=== PATIENT | male | born 1985 | race Caucasian/White ===

== ENCOUNTER 2020-04-12 03:32 | Emergency (ER) | payer BC ==
[2020-04-12 03:39] VITALS: TEMP 97.9
[2020-04-12] MEDS ORDERED: SODIUM CHLORIDE 0.9% 1,000 ML IV STA ×2 (03:52)
[2020-04-12] MEDS ORDERED: HYDROmorphone 1 MG/ML 1 ML SYRINGE IVP STA (03:53)
[2020-04-12] MEDS ORDERED: ONDANSETRON 4 MG/2 ML VIAL IVP STA (03:53)
--- NOTE | 2020-04-12 04:13 | ED ---
Abdominal Pain HPI - General Chief Complaint: Abdominal Pain Stated Complaint: abd pain Time Seen by Provider: 04/12/20 03:33 Source: patient, RN notes reviewed, old records reviewed Mode of arrival: ambulatory Limitations: no limitations - History of Present Illness Initial Comments: This is a 35-year-old male with sudden onset of severe abdominal pain epigastric right or quadrant abdominal pain positive nausea no vomiting. No significant recent alcohol intake. No recent travel history or sick contacts. No trauma. Patient has had a history of high blood pressure in the past. MD Complaint: abdominal pain -: hour(s) Location: diffuse, RUQ, suprapubic Radiation: suprapubic, R flank Migration to: RUQ, epigastric Severity: severe Severity scale (1-10): 10 Quality: stabbing, aching Consistency: constant Improves With: nothing Worsens With: nothing Associated Symptoms: nausea, other (diaphoreses) - Related Data Previous Rx's Medication Instructions Recorded Lisinopril-Hctz 10-12.5 mg 1 tab PO DAILY #60 tab 04/10/15 [Zestoretic 10-12.5] Ibuprofen [Motrin] 600 mg PO Q6HR PRN #20 tab 09/12/15 Orphenadrine [Norflex] 100 mg PO Q12H PRN #12 tablet.er 09/12/15 Allergies Allergy/AdvReac Type Severity Reaction Status Date / Time No Known Allergies Allergy Verified 04/12/20 03:39 Review of Systems ROS Statement: Those systems with pertinent positive or pertinent negative responses have been documented in the HPI. ROS Other: All systems not noted in ROS Statement are negative. Past Medical History Past Medical History: Hypertension History of Any Multi-Drug Resistant Organisms: None Reported Past Surgical History: No Surgical Hx Reported Past Psychological History: No Psychological Hx Reported Smoking Status: Never smoker Past Alcohol Use History: Occasional Past Drug Use History: None Reported General Exam Limitations: no limitations General appearance: alert, in no apparent distress, anxious, in distress, obese Head exam: Present: atraumatic, normocephalic, normal inspection Eye exam: Present: normal appearance, PERRL, EOMI. Absent: scleral icterus, conjunctival injection, periorbital swelling ENT exam: Present: normal exam, mucous membranes moist Neck exam: Present: normal inspection. Absent: tenderness, meningismus, lymphadenopathy Respiratory exam: Present: normal lung sounds bilaterally. Absent: respiratory distress, wheezes, rales, rhonchi, stridor Cardiovascular Exam: Present: regular rate, normal rhythm, normal heart sounds. Absent: systolic murmur, diastolic murmur, rubs, gallop, clicks GI/Abdominal exam: Present: distended, tenderness, normal bowel sounds. Absent: guarding, rebound, rigid Extremities exam: Present: normal inspection, full ROM, normal capillary refill. Absent: tenderness, pedal edema, joint swelling, calf tenderness Back exam: Present: normal inspection Neurological exam: Present: alert, oriented X3, CN II-XII intact Psychiatric exam: Present: normal affect, normal mood Skin exam: Present: warm, dry, intact, normal color. Absent: rash Course Vital Signs 04/12/20 04/12/20 03:38 04:34 Temperature 97.9 F Pulse Rate 75 73 Respiratory 18 19 Rate Blood Pressure 204/96 162/100 O2 Sat by Pulse 99 99 Oximetry - Reevaluation(s) Reevaluation #1: 04/12/20 04:12 Medical record is reviewed Reevaluation #2: 04/12/20 04:12 Patient severe epigastric right upper quadrant abdominal pain persistent, although improved Reevaluation #3: 04/12/20 05:21 Patient's pain is improved here in the emergency department vital signs improving - Consultations Consultation #1: Spoke with on-call general surgery okay for discharge Medical Decision Making - Medical Decision Making 35 male DF for evaluation of abdominal pain, upper quadrant right upper quadrant abdominal pain which does appear to be related to hepatic hemangioma. Patient is in no significant current distress. - Lab Data Result diagrams: 04/12/20 04:00 04/12/20 04:03 Lab Results 04/12/20 04/12/20 04/12/20 Range/Units 04:00 04:03 04:03 WBC 8.5 (3.8-10.6) k/uL RBC 5.56 (4.30-5.90) m/uL Hgb 16.8 (13.0-17.5) gm/dL Hct 48.7 (39.0-53.0) % MCV 87.6 (80.0-100.0) fL MCH 30.1 (25.0-35.0) pg MCHC 34.4 (31.0-37.0) g/dL RDW 12.7 (11.5-15.5) % Plt Count 247 (150-450) k/uL MPV 7.9 Neutrophils % 58 % Lymphocytes % 24 % Monocytes % 7 % Eosinophils % 7 % Basophils % 2 % Neutrophils # 4.9 (1.3-7.7) k/uL Lymphocytes # 2.0 (1.0-4.8) k/uL Monocytes # 0.6 (0-1.0) k/uL Eosinophils # 0.6 (0-0.7) k/uL Basophils # 0.2 (0-0.2) k/uL Sodium 141 (137-145) mmol/L Potassium 4.0 (3.5-5.1) mmol/L Chloride 105 (98-107) mmol/L Carbon Dioxide 28 (22-30) mmol/L Anion Gap 8 mmol/L BUN 17 (9-20) mg/dL Creatinine 1.24 (0.66-1.25) mg/dL Est GFR (CKD-EPI)AfAm 87 (>60 ml/min/1.73 sqM) Est GFR (CKD-EPI)NonAf 75 (>60 ml/min/1.73 sqM) Glucose 107 H (74-99) mg/dL Plasma Lactic Acid Desmond 1.1 (0.7-2.0) mmol/L Calcium 9.8 (8.4-10.2) mg/dL Total Bilirubin 0.4 (0.2-1.3) mg/dL AST 68 H (17-59) U/L ALT 137 H (4-49) U/L Alkaline Phosphatase 67 (38-126) U/L Creatine Kinase 150 (55-170) U/L Total Protein 7.6 (6.3-8.2) g/dL Albumin 4.6 (3.5-5.0) g/dL Amylase 49 (30-110) U/L Lipase 94 (23-300) U/L Disposition Clinical Impression: Liver hemangioma, Abdominal pain Disposition: HOME SELF-CARE Condition: Good Instructions (If sedation given, give patient instructions): Abdominal Pain (ED) Is patient prescribed a controlled substance at d/c from ED?: No Referrals: Earl Varghese MD [Primary Care Provider] - 1-2 days
[2020-04-12 04:16] LABS: Basophils # (A) 0.2 k/uL (0-0.2); Basophils % (A) 2 %; Eosinophils # (A) 0.6 k/uL (0-0.7); Eosinophils % (A) 7 %; HCT 48.7 % (39.0-53.0); HGB 16.8 gm/dL (13.0-17.5); Lymphocytes % (A) 24 %; MCH 30.1 pg (25.0-35.0); MCHC 34.4 g/dL (31.0-37.0); MCV 87.6 fL (80.0-100.0); Mean Platelet Volume 7.9; Monocytes # (A) 0.6 k/uL (0-1.0); Monocytes % (A) 7 %; Neutrophils # (A) 4.9 k/uL (1.3-7.7); Neutrophils % (A) 58 %; Platelet Count 247 k/uL (150-450); RBC 5.56 m/uL (4.30-5.90); RDW 12.7 % (11.5-15.5); WBC 8.5 k/uL (3.8-10.6)
[2020-04-12 04:26] LABS: Albumin 4.6 g/dL (3.5-5.0); Calcium 9.8 mg/dL (8.4-10.2); Total Bilirubin 0.4 mg/dL (0.2-1.3); Total Protein 7.6 g/dL (6.3-8.2)
[2020-04-12 04:35] VITALS: RESP 19
--- NOTE | 2020-04-12 04:48 | CT ---
EXAM: CT Angiography Chest With Intravenous Contrast CLINICAL HISTORY: ITS.REASON CT Reason: pain TECHNIQUE: Axial computed tomographic angiography images of the chest with intravenous contrast. CTDI is 17.435 mGy and DLP is 1285.65 mGy-cm. This CT exam was performed using one or more of the following dose reduction techniques: automated exposure control, adjustment of the mA and/or kV according to patient size, and/or use of iterative reconstruction technique. MIP reconstructed images were created and reviewed. COMPARISON: none available FINDINGS: Pulmonary arteries: Unremarkable. No pulmonary embolism. Aorta: No acute findings. No thoracic aortic aneurysm. Lungs: Bibasilar atelectasis. No mass. No consolidation. Pleural space: Unremarkable. No significant effusion. No pneumothorax. Heart: Unremarkable. No cardiomegaly. No significant pericardial effusion. No evidence of RV dysfunction. Bones/joints: No acute fracture. No dislocation. Soft tissues: Unremarkable. Lymph nodes: Unremarkable. No enlarged lymph nodes. IMPRESSION: 1. No acute pulmonary embolism. 2. No acute intrathoracic process. Bibasilar atelectasis.
--- NOTE | 2020-04-12 04:52 | CT ---
EXAM: CT Abdomen and Pelvis With Intravenous Contrast CLINICAL HISTORY: ITS.REASON CT Reason: pain TECHNIQUE: Axial computed tomography images of the abdomen and pelvis with intravenous contrast. CTDI is 17.435 mGy and DLP is 1285.65 mGy-cm. This CT exam was performed using one or more of the following dose reduction techniques: automated exposure control, adjustment of the mA and/or kV according to patient size, and/or use of iterative reconstruction technique. COMPARISON: 12/25/2013 FINDINGS: Lung bases: Unremarkable. No mass. No consolidation. ABDOMEN: Liver: Diffusely hypoattenuating liver. 1.2 cm enhancing lesion in the inferior right hepatic lobe. Gallbladder and bile ducts: Unremarkable. No calcified stones. No ductal dilation. Pancreas: Unremarkable. No mass. No ductal dilation. Spleen: Unremarkable. No splenomegaly. Adrenals: Unremarkable. No mass. Kidneys and ureters: Unremarkable. No solid mass. No hydronephrosis. Stomach and bowel: Sigmoid diverticulosis. No obstruction. No mucosal thickening. PELVIS: Appendix: No findings to suggest acute appendicitis. Appendix is pneumatized and normal in caliber in the right lower quadrant. Bladder: Unremarkable. No mass. Reproductive: Unremarkable as visualized. ABDOMEN and PELVIS: Intraperitoneal space: Unremarkable. No free air. No significant fluid collection. Bones/joints: No acute fracture. No dislocation. Soft tissues: Unremarkable. Vasculature: Unremarkable. No abdominal aortic aneurysm. Lymph nodes: Unremarkable. No enlarged lymph nodes. IMPRESSION: 1. Sigmoid diverticulosis with no evidence of diverticulitis. 2. 1.2 cm enhancing lesion in the inferior right hepatic lobe which may represent a flash filling hemangioma. Dedicated liver protocol MRI may be obtained for more sensitive evaluation of clinically indicated.
[2020-04-12] MEDS ORDERED: MORPHINE SULFATE 4 MG/ML SYRINGE IVP STA (05:46)
[2020-04-12] MEDS ORDERED: ACET/COD 300 MG/30 MG STARTER PACK 6 TAB BTL PO STA (05:46)
[2020-04-12 05:57] VITALS: BP 150/97; PULSE 78
== END 2020-04-12 05:57 | disposition home or self-care (01) ==
LOC: EC 03:32
DX: D18.03 Hemangioma of intra-abdominal structures (principal)
CPT/HCPCS: 36415; 80053; 82150; 82550; 83605; 83690; 85025; 71275; 74177; 99285; 96374; 96375 ×2; 96361 ×2; J2270; J2405; J1170; Q9967

== ENCOUNTER 2020-04-25 04:38 | Observation (INO) | payer BC ==
[2020-04-25] MEDS ORDERED: HYDROmorphone 1 MG/ML 1 ML SYRINGE IVP STA ×2 (05:05→06:45)
[2020-04-25] MEDS ORDERED: ONDANSETRON ODT 8 MG TAB.RAPDIS PO STA (05:05)
[2020-04-25] MEDS ORDERED: PANTOPRAZOLE 40 MG/10 ML VIAL IVP STA (05:05)
[2020-04-25] MEDS ORDERED: SODIUM CHLORIDE 0.9% 500 ML 500 ML IV STA (05:05)
[2020-04-25] MEDS ORDERED: SODIUM CHLORIDE 0.9% 1,000 ML IV STA ×2 (05:05)
--- NOTE | 2020-04-25 05:06 | ED ---
Recheck HPI <Mario Alberto Ybarra - Last Filed: 04/25/20 14:50> - General Source: patient, RN notes reviewed, old records reviewed Mode of arrival: ambulatory Limitations: no limitations - History of Present Illness MD Complaint: other (Abnormal abdominal pain) -: week(s) Returns Today for: persistent/worsening pain related to initial visit Symptoms Since Prior Visit: worsening pain Context: ran out of medication Associated Symptoms: nausea, abdominal pain Treatments Prior to Arrival: Given Pain Meds on <Cruz Taylor - Last Filed: 04/26/20 02:28> - General Chief Complaint: Abdominal Pain Stated Complaint: ABD pain Time Seen by Provider: 04/25/20 04:48 - History of Present Illness Initial Comments: This is a 35-year-old male DF for evaluation patient comes in for evaluation severe abdominal pain epigastric abdominal pain right upper quadrant abdominal pain nausea sudden onset tonight. Similar symptoms prior without significant diagnosis. No recent fever cough or congestion. Patient states symptoms were sudden in onset than just as bad as before. He has follow-up with his primary care with no significant findings. Patient has no recent travel history or sick contacts. No other cause of pain noted. (Cruz Taylor) - Related Data Home Medications Medication Instructions Recorded Confirmed amLODIPine BESYLATE/BENAZEPRIL 1 cap PO DAILY@1500 04/25/20 04/25/20 [Lotrel 5-20 MG] Allergies Allergy/AdvReac Type Severity Reaction Status Date / Time No Known Allergies Allergy Verified 04/25/20 08:33 Review of Systems ROS Other: All systems not noted in ROS Statement are negative. <Mario Alberto Ybarra - Last Filed: 04/25/20 14:50> ROS Other: All systems not noted in ROS Statement are negative. <Cruz Taylor - Last Filed: 04/26/20 02:28> ROS Statement: Those systems with pertinent positive or pertinent negative responses have been documented in the HPI. Past Medical History Past Medical History: Hypertension History of Any Multi-Drug Resistant Organisms: None Reported Past Surgical History: No Surgical Hx Reported Past Psychological History: No Psychological Hx Reported Smoking Status: Never smoker Past Alcohol Use History: Occasional Past Drug Use History: None Reported - Past Family History Mother Family Medical History: Thyroid Disorder Father Family Medical History: Coronary Artery Disease (CAD) <Vic Taylore Ivan Dhillon Last Filed: 04/26/20 02:28> General Exam Limitations: no limitations General appearance: alert, in no apparent distress, anxious Head exam: Present: atraumatic, normocephalic, normal inspection Eye exam: Present: normal appearance, PERRL, EOMI. Absent: scleral icterus, conjunctival injection, periorbital swelling ENT exam: Present: normal exam, mucous membranes moist Neck exam: Present: normal inspection. Absent: tenderness, meningismus, lymphadenopathy Respiratory exam: Present: normal lung sounds bilaterally. Absent: respiratory distress, wheezes, rales, rhonchi, stridor Cardiovascular Exam: Present: regular rate, normal rhythm, normal heart sounds. Absent: systolic murmur, diastolic murmur, rubs, gallop, clicks GI/Abdominal exam: Present: soft, normal bowel sounds. Absent: distended, tenderness, guarding, rebound, rigid Extremities exam: Present: normal inspection, full ROM, normal capillary refill. Absent: tenderness, pedal edema, joint swelling, calf tenderness Back exam: Present: normal inspection Neurological exam: Present: alert, oriented X3, CN II-XII intact Psychiatric exam: Present: normal affect, normal mood Skin exam: Present: warm, dry, intact, normal color. Absent: rash <Cruz Taylor Ivan De Paz Filed: 04/26/20 02:28> Course <SidramehranCruz Ivan Dhillon Filed: 04/26/20 02:28> Vital Signs 04/25/20 04/25/20 04/25/20 04:43 05:25 06:00 Temperature 98.7 F Pulse Rate 79 72 74 Respiratory 19 18 18 Rate Blood Pressure 193/110 151/92 144/95 O2 Sat by Pulse 98 97 95 Oximetry 04/25/20 04/25/20 04/25/20 07:27 07:38 08:50 Temperature 97.6 F Pulse Rate 66 Respiratory 18 Rate Blood Pressure 144/99 130/91 130/91 O2 Sat by Pulse 97 Oximetry 04/25/20 04/25/20 04/25/20 14:20 17:25 19:20 Temperature 98.7 F 98 F Pulse Rate 73 79 67 Respiratory 18 16 16 Rate Blood Pressure 166/93 164/103 164/95 O2 Sat by Pulse 99 96 98 Oximetry - Reevaluation(s) Reevaluation #1: 04/25/20 06:40 Medical record is reviewed (Cruz Taylor) Medical Decision Making - Lab Data Result diagrams: 04/25/20 05:09 04/25/20 05:10 <Mario Alberto Ybarra - Last Filed: 04/25/20 14:50> - Lab Data Result diagrams: 04/25/20 05:09 04/25/20 05:10 <Cruz Taylor - Last Filed: 04/26/20 02:28> - Medical Decision Making 35-year-old male with right upper quadrant abdominal pain. Patient's care was s igned out at shift change awaiting HIDA scan. Patient was out of the department for approximately 4 hours. Upon return his HIDA scan results are pending but the patient has persistent abdominal pain. I did discuss case with Dr. Lord who is also waiting for HIDA scan results. Given the patient's ongoing persistent pain he will be placed in observation. Case is been discussed with Dr. Varghese who will admit the patient, general surgery on consult. Symptomatic control for intractable abdominal pain. Suspicion for biliary colic or acute cholecystitis. (Mario Alberto Ybarra) - Lab Data Lab Results 04/25/20 04/25/20 04/25/20 Range/Units 05:09 05:10 05:10 WBC 7.8 (3.8-10.6) k/uL RBC 5.31 (4.30-5.90) m/uL Hgb 16.5 (13.0-17.5) gm/dL Hct 46.5 (39.0-53.0) % MCV 87.6 (80.0-100.0) fL MCH 31.1 (25.0-35.0) pg MCHC 35.5 (31.0-37.0) g/dL RDW 12.5 (11.5-15.5) % Plt Count 255 (150-450) k/uL MPV 8.1 Neutrophils % 49 % Lymphocytes % 31 % Monocytes % 8 % Eosinophils % 9 % Basophils % 2 % Neutrophils # 3.9 (1.3-7.7) k/uL Lymphocytes # 2.4 (1.0-4.8) k/uL Monocytes # 0.6 (0-1.0) k/uL Eosinophils # 0.7 (0-0.7) k/uL Basophils # 0.1 (0-0.2) k/uL PT 9.6 (9.0-12.0) sec INR 0.9 (<1.2) APTT 22.6 (22.0-30.0) sec Sodium 141 (137-145) mmol/L Potassium 4.1 (3.5-5.1) mmol/L Chloride 108 H (98-107) mmol/L Carbon Dioxide 26 (22-30) mmol/L Anion Gap 7 mmol/L BUN 22 H (9-20) mg/dL Creatinine 1.19 (0.66-1.25) mg/dL Est GFR (CKD-EPI)AfAm >90 (>60 ml/min/1.73 sqM) Est GFR (CKD-EPI)NonAf 78 (>60 ml/min/1.73 sqM) Glucose 101 H (74-99) mg/dL Plasma Lactic Acid Desmond (0.7-2.0) mmol/L Calcium 9.5 (8.4-10.2) mg/dL Total Bilirubin 0.4 (0.2-1.3) mg/dL AST 60 H (17-59) U/L ALT 131 H (4-49) U/L Alkaline Phosphatase 70 (38-126) U/L Total Protein 7.6 (6.3-8.2) g/dL Albumin 4.6 (3.5-5.0) g/dL Amylase 49 (30-110) U/L Lipase 142 (23-300) U/L 04/25/20 Range/Units 05:10 WBC (3.8-10.6) k/uL RBC (4.30-5.90) m/uL Hgb (13.0-17.5) gm/dL Hct (39.0-53.0) % MCV (80.0-100.0) fL MCH (25.0-35.0) pg MCHC (31.0-37.0) g/dL RDW (11.5-15.5) % Plt Count (150-450) k/uL MPV Neutrophils % % Lymphocytes % % Monocytes % % Eosinophils % % Basophils % % Neutrophils # (1.3-7.7) k/uL Lymphocytes # (1.0-4.8) k/uL Monocytes # (0-1.0) k/uL Eosinophils # (0-0.7) k/uL Basophils # (0-0.2) k/uL PT (9.0-12.0) sec INR (<1.2) APTT (22.0-30.0) sec Sodium (137-145) mmol/L Potassium (3.5-5.1) mmol/L Chloride (98-107) mmol/L Carbon Dioxide (22-30) mmol/L Anion Gap mmol/L BUN (9-20) mg/dL Creatinine (0.66-1.25) mg/dL Est GFR (CKD-EPI)AfAm (>60 ml/min/1.73 sqM) Est GFR (CKD-EPI)NonAf (>60 ml/min/1.73 sqM) Glucose (74-99) mg/dL Plasma Lactic Acid Desmond 0.9 (0.7-2.0) mmol/L Calcium (8.4-10.2) mg/dL Total Bilirubin (0.2-1.3) mg/dL AST (17-59) U/L ALT (4-49) U/L Alkaline Phosphatase (38-126) U/L Total Protein (6.3-8.2) g/dL Albumin (3.5-5.0) g/dL Amylase (30-110) U/L Lipase (23-300) U/L Disposition Is patient prescribed a controlled substance at d/c from ED?: No Decision to Admit Reason: Admit from EC Decision Date: 04/25/20 Decision Time: 14:53 <Mario Alberto Ybarra - Last Filed: 04/25/20 14:50> <Cruz Taylor - Last Filed: 04/26/20 02:28> Clinical Impression: Abdominal pain, Liver hemangioma Disposition: ADMITTED IP TO THIS [facility] Condition: Stable
[2020-04-25] MEDS ORDERED: ONDANSETRON 4 MG/2 ML VIAL IVP STA (05:19)
[2020-04-25 05:20] LABS: Basophils # (A) 0.1 k/uL (0-0.2); Basophils % (A) 2 %; Eosinophils # (A) 0.7 k/uL (0-0.7); Eosinophils % (A) 9 %; HCT 46.5 % (39.0-53.0); HGB 16.5 gm/dL (13.0-17.5); Lymphocytes # (A) 2.4 k/uL (1.0-4.8); Lymphocytes % (A) 31 %; MCH 31.1 pg (25.0-35.0); MCHC 35.5 g/dL (31.0-37.0); MCV 87.6 fL (80.0-100.0); Mean Platelet Volume 8.1; Monocytes # (A) 0.6 k/uL (0-1.0); Monocytes % (A) 8 %; Neutrophils # (A) 3.9 k/uL (1.3-7.7); Neutrophils % (A) 49 %; Platelet Count 255 k/uL (150-450); RBC 5.31 m/uL (4.30-5.90); RDW 12.5 % (11.5-15.5); WBC 7.8 k/uL (3.8-10.6)
[2020-04-25 05:42] LABS: INR 0.9 (<1.2); Partial Thromboplastin Time 22.6 sec (22.0-30.0); Prothrombin Time 9.6 sec (9.0-12.0)
--- NOTE | 2020-04-25 06:02 | CT ---
EXAM: CT Abdomen and Pelvis With Intravenous Contrast CLINICAL HISTORY: ITS.REASON CT Reason: abdominal pain TECHNIQUE: Axial computed tomography images of the abdomen and pelvis with intravenous contrast. CTDI is 39.47 mGy and DLP is 2050.3 mGy-cm. This CT exam was performed using one or more of the following dose reduction techniques: automated exposure control, adjustment of the mA and/or kV according to patient size, and/or use of iterative reconstruction technique. COMPARISON: 04/12/2020. FINDINGS: Lung bases: Minimal patchy airspace disease is noted at the lung bases possibly in the basilar atelectasis. Atypical pneumonia cannot be entirely excluded. ABDOMEN: Liver: Fatty liver. A 1 cm rapidly enhancing region in the right lobe of the liver best seen on series 201 image 36. Magnetic resonance imaging of the abdomen with gadolinium administration dynamic imaging is advised to follow-up for further characterization. Gallbladder and bile ducts: The gallbladder is unremarkable. No calcified stones. No ductal dilation. Pancreas: See below. Spleen: The spleen enhance uniformly. Adrenals: The adrenal glands, the head, body, tail of the pancreas are unremarkable. Kidneys and ureters: Both kidneys are shown to excrete contrast bilaterally. Minimal nonspecific stranding about the perinephric spaces. Stomach and bowel: Moderate quantity of stool throughout the colon without bowel obstruction. Mild diverticulosis without diverticulitis. PELVIS: Appendix: The appendix is seen on coronal image 56 and is unremarkable. Bladder: Unremarkable. No mass. Reproductive: Unremarkable as visualized. ABDOMEN and PELVIS: Intraperitoneal space: Unremarkable. No free air. No significant fluid collection. Bones/joints: Mild to moderate degenerative disc disease of the visualized spinal:. Moderate osteoarthritic changes about the sacroiliac joints. No spondylolysis or spinal listhesis. The sacrum and coccyx are unremarkable. No acute fracture. No dislocation. Soft tissues: Unremarkable. Vasculature: Flow is demonstrated within the celiac, SMA, the renal arteries, and PÉREZ. No abdominal aortic aneurysm. Lymph nodes: No retroperitoneal lymphadenopathy. IMPRESSION: 1. Fatty liver. 2. Rapidly enhancing lesion right lobe of the liver similar to that noted on the previous study. Magnetic resonance imaging of the abdomen with gadolinium administration dynamic imaging is advised to further evaluate this lesion. 3. Gallbladder is unremarkable. 4. No renal calculus or hydronephrosis. 5. The appendix is unremarkable. 6. Moderate quantity of stool throughout the colon. 7. No bowel obstruction. 8. Mild diverticulosis without diverticulitis.
[2020-04-25 06:07] LABS: ALT 131 U/L (4-49); AST 60 U/L (17-59); African American GFR (CKD) >90 (>60 ml/min/1.73 sqM); Albumin 4.6 g/dL (3.5-5.0); Alkaline Phosphatase 70 U/L (38-126); Amylase 49 U/L (30-110); Anion Gap 7 mmol/L; Blood Urea Nitrogen 22 mg/dL (9-20); Calcium 9.5 mg/dL (8.4-10.2); Carbon Dioxide 26 mmol/L (22-30); Chloride 108 mmol/L (98-107); Glucose 101 mg/dL (74-99); Lipase 142 U/L (23-300); Non-African American GFR(CKD) 78 (>60 ml/min/1.73 sqM); Potassium 4.1 mmol/L (3.5-5.1); Sodium 141 mmol/L (137-145); Total Bilirubin 0.4 mg/dL (0.2-1.3); Total Protein 7.6 g/dL (6.3-8.2)
[2020-04-25] MEDS ORDERED: HYDROmorphone 1 MG/ML 1 ML SYRINGE IVP PRN (06:45)
[2020-04-25] MEDS ORDERED: ONDANSETRON 4 MG/2 ML VIAL IVP PRN (06:45)
--- NOTE | 2020-04-25 07:38 | US ---
EXAMINATION TYPE: US gallbladder DATE OF EXAM: 04/25/2020 COMPARISON: CT same day CLINICAL HISTORY: 35-year-old male RUQ abdomen pain. TECHNIQUE: Multiple sonographic images of the right upper quadrant are obtained. FINDINGS: EXAM MEASUREMENTS: Liver Length: 19.6 cm Gallbladder Wall: 0.2 cm CBD: 4.6 mm Right Kidney: 10.3 x 5.0 x 4.9 cm Pancreas: Pancreatic head and tail obscured by overlying bowel gas. Liver: Echogenic with far field attenuation. There is a 1.2 cm hypoechoic lesion in the right liver lobe with posterior transmission. This may correspond to the hypervascular lesion seen on CT, suspect ed hemangioma on a background of fatty liver change. Gallbladder: Mildly distended measuring 11.4 cm long. No abnormal wall thickening, pericholecystic f luid, or shadowing calculi. Evidence for sonographic Fofana's sign: neg CBD: wnl in size, limited visualization due to overlying bowel gas Right Kidney: No hydronephrosis. IMPRESSION: 1. Gallbladder is mildly distended but otherwise shows no gallstones or ancillary imaging findings of acute cholecystitis. 2. No biliary ductal dilatation. 3. Moderate to severe hepatic steatosis. 1.2 cm lesion in the right liver lobe with posterior through transmission, suspected hemangioma.
[2020-04-25] MEDS ORDERED: HYDROmorphone 0.5 MG/0.5 ML SYRINGE IVP STA (14:47)
[2020-04-25] MEDS ORDERED: NALOXONE 0.4 MG/ML 1 ML VIAL IV PRN (14:48)
--- NOTE | 2020-04-25 15:22 | NM ---
EXAMINATION TYPE: NM hepatobiliary w CCK DATE OF EXAM: 04/25/2020 COMPARISON: CT and ultrasound same day HISTORY: 35-year-old male with abdominal pain TECHNIQUE: After the intravenous administration of 5.3 mCi Tc 99m Mebrofenin hepatobiliary scintigrap hy is performed. Immediate images post injection. FINDINGS: There is satisfactory initial accumulation of tracer by the liver. Delayed imaging was performed up to 2 hours in order to visualize the gallbladder. Bowel activity is visualized at 16 minutes. Promine nt reflux into the stomach is demonstrated within the first 60 minutes of imaging and also at the 2 h our roberta. At 2 hours, CCK was administered, patient was injected with 2.4 mcg of Kinevac, and gallbla dder ejection fraction is calculated at 88 %, elevated. IMPRESSION: 1. No scintigraphic evidence for acute cholecystitis given that there was filling of the gallbladder (however, note that filling was delayed and seen at 2 hours). 2. Elevated gallbladder ejection fraction of 88% may be seen with gallbladder hyperkinesis. Clinicall y correlate. 3. Prominent bile reflux into the stomach. This may be secondary to insufficiency of the pyloric sphi ncter. Clinically correlate.
[2020-04-25] MEDS ORDERED: amLODIPine 5 MG TAB PO STA (17:19)
[2020-04-25] MEDS ORDERED: lisinopriL 20 MG TAB PO STA (17:21)
[2020-04-25] MEDS: SODIUM CHLORIDE 0.9% 1,000 ML IV SCH (17:24)
[2020-04-25] MEDS: HYDROmorphone 0.5 MG/0.5 ML SYRINGE IVP PRN (22:39)
[2020-04-26] MEDS: SODIUM CHLORIDE 0.9% 1,000 ML IV SCH (06:54)
--- NOTE | 2020-04-26 07:41 | P.HPIM ---
History of Present Illness H&P Date: 04/26/20 Chief Complaint: Nausea with right upper quadrant pain. This is a history and physical 35-year-old white male who is been having intermittent right upper quadrant abdominal pain. He states yesterday morning that he had a hamburger and salad for dinner and had excruciating right upper quadrant abdominal pain. Workup including HIDA scan shows hyperkinetic but no overt cholecystitis. The patient is still continuing of right upper quadrant pain. Pain is otherwise nominal. His appetite is minimal. No overt ethanol use. This is been worsening over the last several weeks. Multiple ER evaluations have been done recently. Review of Systems Eyes: denies blurred vision, denies pain Ears, nose, mouth and throat: Denies headache, Denies sore throat Cardiovascular: Denies chest pain, Denies shortness of breath Respiratory: Denies cough Gastrointestinal: Reports abdominal pain, Reports nausea Past Medical History Past Medical History: Hypertension History of Any Multi-Drug Resistant Organisms: None Reported Past Surgical History: No Surgical Hx Reported Past Anesthesia/Blood Transfusion Reactions: No Reported Reaction Past Psychological History: No Psychological Hx Reported Smoking Status: Never smoker Past Alcohol Use History: Occasional Past Drug Use History: None Reported - Past Family History Mother Family Medical History: Thyroid Disorder Father Family Medical History: Coronary Artery Disease (CAD) Medications and Allergies Home Medications Medication Instructions Recorded Confirmed Type amLODIPine BESYLATE/BENAZEPRIL 1 cap PO DAILY@1500 04/25/20 04/25/20 History [Lotrel 5-20 MG] Allergies Allergy/AdvReac Type Severity Reaction Status Date / Time No Known Allergies Allergy Verified 04/25/20 08:33 Physical Exam Vitals: Vital Signs Temp Pulse Pulse Resp BP BP Pulse Ox 04/26/20 02:15 97.7 F 76 18 122/68 94 L 04/25/20 22:15 98.4 F 71 18 146/86 96 04/25/20 19:20 67 16 164/95 98 04/25/20 17:25 98 F 79 16 164/103 96 04/25/20 14:20 98.7 F 73 18 166/93 99 04/25/20 08:50 130/91 Intake and Output 04/25/20 04/26/20 04/26/20 22:59 06:59 14:59 Other: Voiding Method Toilet # Voids 1 2 Weight 117.934 kg - Constitutional General appearance: no acute distress - EENT Eyes: EOMI - Respiratory Respiratory: bilateral: CTA - Cardiovascular Rhythm: regular Heart sounds: normal: S1, S2 Abnormal Heart Sounds: no S3 Gallop - Gastrointestinal General gastrointestinal: soft, no tenderness - Psychiatric Psychiatric: A&O x's 3 Results CBC & Chem 7: 04/25/20 05:09 04/25/20 05:10 Thrombosis Risk Factor Assmnt - Choose All That Apply Each Factor Represents 1 point: Obesity (BMI >25) Other Risk Factors: No Other congenital or acquired thrombophilia - If yes, enter type in comment: No Thrombosis Risk Factor Assessment Total Risk Factor Score: 1 Thrombosis Risk Factor Assessment Level: Low Risk Assessment and Plan (1) Hypertension Current Visit: Yes Status: Acute Code(s): I10 - ESSENTIAL (PRIMARY) HYPERTENSION SNOMED Code(s): 98334257 (2) Abdominal pain Current Visit: Yes Status: Acute Code(s): R10.9 - UNSPECIFIED ABDOMINAL PAIN SNOMED Code(s): 16869300 (3) Liver hemangioma Current Visit: Yes Status: Acute Code(s): D18.03 - HEMANGIOMA OF INTRA- ABDOMINAL STRUCTURES SNOMED Code(s): 04425907 Plan: Question need for cholecystectomy related to hyperkinetic HIDA scan. Nothing by mouth for now. Dietary counseling given to the patient. Appreciate surgical input. Time with Patient: Greater than 30
[2020-04-26] MEDS: HYDROmorphone 0.5 MG/0.5 ML SYRINGE IVP PRN ×2 (08:15→19:59)
[2020-04-26 08:25] LABS: Basophils # (A) 0.1 k/uL (0-0.2); Basophils % (A) 2 %; Eosinophils # (A) 0.6 k/uL (0-0.7); Eosinophils % (A) 11 %; HCT 45.4 % (39.0-53.0); HGB 15.9 gm/dL (13.0-17.5); Lymphocytes % (A) 18 %; MCH 30.9 pg (25.0-35.0); MCV 88.2 fL (80.0-100.0); Monocytes # (A) 0.5 k/uL (0-1.0); Monocytes % (A) 9 %; Neutrophils # (A) 3.2 k/uL (1.3-7.7); Neutrophils % (A) 59 %; Platelet Count 212 k/uL (150-450); RBC 5.15 m/uL (4.30-5.90); RDW 12.5 % (11.5-15.5); WBC 5.5 k/uL (3.8-10.6)
[2020-04-26 08:43] LABS: ALT 128 U/L (4-49); AST 62 U/L (17-59); African American GFR (CKD) >90 (>60 ml/min/1.73 sqM); Alkaline Phosphatase 55 U/L (38-126); Anion Gap 6 mmol/L; Blood Urea Nitrogen 17 mg/dL (9-20); Calcium 9.1 mg/dL (8.4-10.2); Carbon Dioxide 27 mmol/L (22-30); Chloride 107 mmol/L (98-107); Glucose 98 mg/dL (74-99); Lipase 103 U/L (23-300); Non-African American GFR(CKD) >90 (>60 ml/min/1.73 sqM); Potassium 4.5 mmol/L (3.5-5.1); Sodium 140 mmol/L (137-145); Total Bilirubin 0.5 mg/dL (0.2-1.3); Total Protein 6.6 g/dL (6.3-8.2)
--- NOTE | 2020-04-26 12:41 | P.GSCN ---
History of Present Illness Consult date: 04/26/20 History of present illness: CHIEF COMPLAINT: Abdominal pain HISTORY OF PRESENT ILLNESS: This is a 35-year-old male with a history of hypertension. He presents to the hospital with complaints of severe epigastric and right upper quadrant abdominal pain that started yesterday evening. Patient reports symptoms started yesterday evening after eating dinner which did include a hamburger. Patient had abdominal ultrasound showing mildly distended but otherwise no gallstones. No biliary ductal dilation. Patient does have some mildly elevated LFTs. HIDA scan no evidence for acute cholecystitis given that there is filling of the gallbladder. Elevated gallbladder ejection fraction of 88% may be seen with gallbladder hyperkinesis. Patient denies any fever chills or sweats. PAST MEDICAL HISTORY: See list. PAST SURGICAL HISTORY: See list. MEDICATIONS: See list. ALLERGIES: See list. SOCIAL HISTORY: No illicit drug use. REVIEW OF SYSTEMS: CONSTITUTIONAL: Denies fever or chills. HEENT: Denies blurred vision, vision changes, or eye pain. Denies hemoptysis CARDIOVASCULAR: Denies chest pain or pressure. RESPIRATORY: No shortness of breath. GASTROINTESTINAL: See HPI for pertinent findings HEMATOLOGIC: Denies bleeding disorders. GENITOURINARY: Denies any blood in urine or increased urinary frequency. SKIN: Denies pruitis. Denies rash. PHYSICAL EXAM: VITAL SIGNS: Reviewed GENERAL: Well-developed in no acute distress. HEENT: No sclera icterus. Extraocular movements grossly intact. Moist buccal mucosa. Head is atraumatic, normocephalic. No nasal drainage. ABDOMEN: Soft. Right upper quadrant tenderness with palpation nondistended NEUROLOGIC: Alert and oriented. Cranial nerves II through XII grossly intact. LABORATORY DATA: WBC 5.5 hemoglobin 15.9 sodium 140 creatinine 1.05 AST 62 ALT 128 alk phos 55 total bili 0.5 IMAGING: abdominal ultrasound showing mildly distended but otherwise no gallstones. No biliary ductal dilation. Moderate to severe hepatic steatosis. 1.2 cm lesion in the right liver lobe, suspected hemangioma HIDA scan no evidence for acute cholecystitis given that there is filling of the gallbladder. Elevated gallbladder ejection fraction of 88% may be seen with gallbladder hyperkinesis. Computed tomography scan of abdomen and pelvis shows fatty liver, rapidly enhancing lesion right lobe of the liver similar to that noted on previous study, gallbladder is unremarkable, no renal calculus or hydronephrosis. The appendix is unremarkable. Moderate quantity of stool throughout the colon. No bowel obstruction. Mild diverticulosis without diverticulitis. ASSESSMENT: 1. 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 Abdominal pain PLAN: -Patient is scheduled for laparoscopic cholecystectomy tomorrow, 04/27/[address] Lord -Patient can have clear liquid diet today and then nothing by mouth after midnight Thank you for this consultation Physician Design Lead note has been reviewed by physician. Signing provider agrees with the documented findings, assessment, and plan of care. Past Medical History Past Medical History: Hypertension History of Any Multi-Drug Resistant Organisms: None Reported Past Surgical History: No Surgical Hx Reported Past Anesthesia/Blood Transfusion Reactions: No Reported Reaction Past Psychological History: No Psychological Hx Reported Smoking Status: Never smoker Past Alcohol Use History: Occasional Past Drug Use History: None Reported - Past Family History Mother Family Medical History: Thyroid Disorder Father Family Medical History: Coronary Artery Disease (CAD) Medications and Allergies Home Medications Medication Instructions Recorded Confirmed Type amLODIPine BESYLATE/BENAZEPRIL 1 cap PO DAILY@1500 04/25/20 04/25/20 History [Lotrel 5-20 MG] Allergies Allergy/AdvReac Type Severity Reaction Status Date / Time No Known Allergies Allergy Verified 04/25/20 08:33 Surgical - Exam Vital Signs Temp Pulse Resp BP Pulse Ox 98.7 F 79 19 193/110 98 04/25/20 04:43 04/25/20 04:43 04/25/20 04:43 04/25/20 04:43 04/25/20 04:43 Results - Labs 04/26/20 07:27 04/26/20 07:27 Abnormal Lab Results - Last 24 Hours (Table) 04/26/20 Range/Units 07:27 AST 62 H (17-59) U/L ALT 128 H (4-49) U/L Diabetes panel 04/26/20 Range/Units 07:27 Sodium 140 (137-145) mmol/L Potassium 4.5 (3.5-5.1) mmol/L Chloride 107 (98-107) mmol/L Carbon Dioxide 27 (22-30) mmol/L BUN 17 (9-20) mg/dL Creatinine 1.05 (0.66-1.25) mg/dL Glucose 98 (74-99) mg/dL Calcium 9.1 (8.4-10.2) mg/dL AST 62 H (17-59) U/L ALT 128 H (4-49) U/L Alkaline Phosphatase 55 (38-126) U/L Total Protein 6.6 (6.3-8.2) g/dL Albumin 4.0 (3.5-5.0) g/dL Calcium panel 04/26/20 Range/Units 07:27 Calcium 9.1 (8.4-10.2) mg/dL Albumin 4.0 (3.5-5.0) g/dL Pituitary panel 04/26/20 Range/Units 07:27 Sodium 140 (137-145) mmol/L Potassium 4.5 (3.5-5.1) mmol/L Chloride 107 (98-107) mmol/L Carbon Dioxide 27 (22-30) mmol/L BUN 17 (9-20) mg/dL Creatinine 1.05 (0.66-1.25) mg/dL Glucose 98 (74-99) mg/dL Calcium 9.1 (8.4-10.2) mg/dL Adrenal panel 04/26/20 Range/Units 07:27 Sodium 140 (137-145) mmol/L Potassium 4.5 (3.5-5.1) mmol/L Chloride 107 (98-107) mmol/L Carbon Dioxide 27 (22-30) mmol/L BUN 17 (9-20) mg/dL Creatinine 1.05 (0.66-1.25) mg/dL Glucose 98 (74-99) mg/dL Calcium 9.1 (8.4-10.2) mg/dL Total Bilirubin 0.5 (0.2-1.3) mg/dL AST 62 H (17-59) U/L ALT 128 H (4-49) U/L Alkaline Phosphatase 55 (38-126) U/L Total Protein 6.6 (6.3-8.2) g/dL Albumin 4.0 (3.5-5.0) g/dL
[2020-04-26] MEDS: amLODIPine 5 MG TAB PO SCH (16:44)
[2020-04-26] MEDS: lisinopriL 20 MG TAB PO SCH (16:44)
[2020-04-27] MEDS: HYDROmorphone 0.5 MG/0.5 ML SYRINGE IVP PRN ×3 (04:10→14:06)
[2020-04-27] MEDS: SODIUM CHLORIDE 0.9% 1,000 ML IV SCH ×3 (04:12→09:19)
--- NOTE | 2020-04-27 08:33 | P.PN ---
Subjective Progress Note Date: 04/27/20 Principal diagnosis: This is a continue pressure on a 35-year-old white male with intractable abdominal pain. He still feels uncomfortable. Workup does show hyperkinetic gallbladder. The patient is scheduled for cholecystectomy today. No significant changes. No bowel movement issues. Objective - Vital Signs Vital signs: Vital Signs Temp 97.6 F 04/27/20 03:00 Pulse 62 04/27/20 03:00 Resp 18 04/27/20 03:00 BP 126/74 04/27/20 03:00 Pulse Ox 96 04/27/20 03:00 Intake & Output 04/26/20 04/27/20 04/27/20 18:59 06:59 18:59 Intake Total 1200 Balance 1200 Intake: IV 800 Sodium Chloride 0.9% 1, 800 000 ml @ 100 mls/hr IV . Q10H ADELIA Rx#:[id number] Oral 400 Other: Voiding Method Toilet Toilet # Voids 3 2 # Bowel Movements 1 1 - Constitutional General appearance: Present: cooperative - EENT Eyes: Absent: abnormal pupil - Neck Neck: Absent: lymphadenopathy - Respiratory Respiratory: bilateral: CTA - Cardiovascular Rhythm: regular Heart sounds: normal: S1, S2 Abnormal Heart Sounds: Absent: S3 Gallop - Integumentary Integumentary: Absent: cellulitis - Labs CBC & Chem 7: 04/26/20 07:27 04/26/20 07:27 Labs: Abnormal Lab Results - Last 24 Hours (Table) 04/26/20 Range/Units 07:27 AST 62 H (17-59) U/L ALT 128 H (4-49) U/L Assessment and Plan (1) Hypertension Current Visit: Yes Status: Acute Code(s): I10 - ESSENTIAL (PRIMARY) HYPERTENSION SNOMED Code(s): 88455408 (2) Abdominal pain Current Visit: Yes Status: Acute Code(s): R10.9 - UNSPECIFIED ABDOMINAL PAIN SNOMED Code(s): 30819907 (3) Liver hemangioma Current Visit: Yes Status: Acute Code(s): D18.03 - HEMANGIOMA OF INTRA- ABDOMINAL STRUCTURES SNOMED Code(s): 05412588 Plan: Hyperkinetic heart scan. Scheduled for cholecystectomy today. Anticipate discharge in next 24-48 hours
[2020-04-27] MEDS ORDERED: IV FLUID CONTINUATION 800 ML IV ONE (10:19)
[2020-04-27] MEDS ORDERED: ONDANSETRON 4 MG/2 ML VIAL IVP ONE (10:39)
[2020-04-27] MEDS ORDERED: HEPARIN SODIUM,PORCINE 5,000 UNIT/ML 1 ML VIAL ONE (10:42)
[2020-04-27] MEDS ORDERED: BUPIVACAINE (PF) 0.25% 30 ML VIAL SQ ONE (10:47)
[2020-04-27] MEDS ORDERED: PROPOFOL 10 MG/ML 20 ML VIAL IV ONE (10:54)
[2020-04-27] MEDS ORDERED: fentaNYL (PF) 50 MCG/ML 2 ML AMP ONE (10:54)
[2020-04-27] MEDS ORDERED: SUCCINYLCHOLINE CHLORIDE VIAL 200 MG/10 ML VIAL IV ONE (10:54)
[2020-04-27] MEDS ORDERED: HYDROmorphone (PF) 1 MG/ML ONE (10:54)
[2020-04-27] MEDS ORDERED: MIDAZOLAM 2 MG/2 ML VIAL ONE (10:54)
[2020-04-27] MEDS ORDERED: NEOSTIGMINE 1 MG/ML 10 ML VIAL ONE (10:54)
[2020-04-27] MEDS ORDERED: GLYCOPYRROLATE 0.2 MG/ML 2 ML VIAL ONE (10:54)
[2020-04-27] MEDS ORDERED: LIDOCAINE 1% INJ 10MG/ML (20 ML MDV) ONE (10:54)
[2020-04-27] MEDS ORDERED: KETOROLAC 15 MG/ML 1 ML VIAL ONE (10:54)
[2020-04-27] MEDS ORDERED: ROCURONIUM 10 MG/ML (10 ML VIAL) IV ONE (10:54)
[2020-04-27] MEDS ORDERED: ceFAZolin 1,000 MG VIAL IVPB ONE (11:05)
--- NOTE | 2020-04-27 11:38 | P.OP ---
Date of Procedure: 04/27/20 Preoperative Diagnosis: Cholecystitis Postoperative Diagnosis: Cholecystitis Procedure(s) Performed: Laparoscopic cholecystectomy Anesthesia: CHRIS Surgeon: Jhon Lord Pathology: other (Gallbladder) Condition: stable Disposition: PACU Description of Procedure: The patient was placed on the operating table. The patient received a general endotracheal tube anesthesia. The patients abdomen was prepped and draped in the usual sterile fashion. Through an infraumbilical stab incision, the fascia of the anterior abdominal wall was grasped with a pair of Kochers and then the Veress needle was placed in the peritoneal cavity. Position of the Veress needle was confirmed with positive drop test. The abdomen was then insufflated. After adequate insufflation, the 10 mm trocar was placed in the peritoneal cavity. Following this the laparoscope was placed in the peritoneal cavity. The patient was placed in the head-up, right side up position and then a 5 mm trocar was placed in the right lateral and right subcostal position under direct visualization. A 8 mm trocar was placed in the epigastric position. The gallbladder was grasped in the fundus and infundibulum. Traction on the gallbladder was placed in the lateral and the cephalad positions. The triangle of Calot was visualized.. The cystic duct was bluntly dissected until the union of the cystic duct and common bile duct was seen. A critical view of safety was achieved. The cystic duct was then divided and sealed with the Harmonic scissors. A PDS Endoloop was then placed throughout the cystic duct stump. The cystic artery divided and sealed with the Harmonic scissors. The gallbladder was then removed from the liver bed using Harmonic scissors. The gallbladder was then extracted through the epigastric port site. Operative field was checked for any bleeding spots and Harmonic scissors was used to coagulate the liver bed. The abdomen was irrigated. The trocars were removed. The skin was closed using interrupted 3-0 Vicryl suture. Dermabond dressing were applied. The patient tolerated the procedure well.
[2020-04-27] MEDS ORDERED: LACTATED RINGERS 1,000 ML IV ONE (12:00)
[2020-04-27] MEDS ORDERED: HYDROcodone/APAP 5-325MG 1 EACH TAB PO PRN (15:29)
--- NOTE | 2020-04-27 15:34 | P.PN ---
Subjective Progress Note Date: 04/27/20 CHIEF COMPLAINT: Abdominal pain HISTORY OF PRESENT ILLNESS: Patient is status post laparoscopic cholecystectomy. Postop day #0. Pain controlled. Denies any nausea or vomiting. Afebrile. PHYSICAL EXAM: VITAL SIGNS: Reviewed. GENERAL: Well-developed in no acute distress. HEENT: No sclera icterus. Extraocular movements grossly intact. Moist buccal mucosa. Head is atraumatic, normocephalic. ABDOMEN: Soft. Nondistended. NEUROLOGIC: Alert and oriented. Cranial nerves II through XII grossly intact. ASSESSMENT: 1. Cholecystitis status post Laparoscopic cholecystectomy 2. Hyperkinetic gallbladder PLAN: -Patient is stable from surgical standpoint for discharge home after 7:00 tonight and is tolerating diet -Patient felt with Dr. Lord in 1 week Physician Nursing Home Assistant Administrator note has been reviewed by physician. Signing provider agrees with the documented findings, assessment, and plan of care. Objective - Vital Signs Vital signs: Vital Signs Temp 96.9 F L 04/27/20 11:48 Pulse 60 04/27/20 13:39 Resp 20 04/27/20 13:39 BP 134/87 04/27/20 13:39 Pulse Ox 96 04/27/20 13:39 Intake & Output 04/26/20 04/27/20 04/27/20 18:59 06:59 18:59 Intake Total 1200 1570 Output Total 5 Balance 1200 1565 Intake: IV 800 1570 Sodium Chloride 0.9% 1, 800 800 000 ml @ 100 mls/hr IV . Q10H ADELIA Rx#:[id number] Oral 400 Output: Estimated Blood Loss 5 Other: Voiding Method Toilet Toilet Toilet # Voids 3 2 2 # Bowel Movements 1 1 - Labs CBC & Chem 7: 04/26/20 07:27 04/26/20 07:27
[2020-04-27 15:56] VITALS: TEMP 97.5
[2020-04-27] MEDS: amLODIPine 5 MG TAB PO SCH (16:08)
--- NOTE | 2020-04-27 17:22 | P.DS ---
Providers Date of admission: 04/25/20 14:48 Attending physician: Earl Varghese Consults: 04/25/20 14:48 Consult Physician Routine Consulting Provider: Jhon Lord Consult Reason/Comments: Abdominal pain, biliary colic Do you want consulting provider notified?: Already Contacted Primary care physician: Earl Varghese - Discharge Diagnosis(es) (1) Hypertension Current Visit: Yes Status: Acute (2) Abdominal pain Current Visit: Yes Status: Acute (3) Liver hemangioma Current Visit: Yes Status: Acute Hospital Course: SP lap cholecystitis related to hyperkinetic gallbladder. will follow up in 2-3 days Patient Condition at Discharge: Stable Plan - Discharge Summary Discharge Rx Participant: No New Discharge Prescriptions: New Docusate [Colace] 100 mg PO BID #30 capsule Hydrocodone/Acetaminophen [[place] 5-325] 1 tab PO Q4HR PRN 3 Days #18 tab PRN Reason: Pain HYDROcodone/APAP 5-325MG [[place] 5-325] 1 each PO Q4HR PRN #28 tab PRN Reason: Pain Continue amLODIPine BESYLATE/BENAZEPRIL [Lotrel 5-20 MG] 1 cap PO DAILY@1500 Discharge Medication List amLODIPine BESYLATE/BENAZEPRIL [Lotrel 5-20 MG] 1 cap PO DAILY@1500 04/25/20 [History] Docusate [Colace] 100 mg PO BID #30 capsule 04/27/20 [Rx] HYDROcodone/APAP 5-325MG [[place] 5-325] 1 each PO Q4HR PRN #28 tab 04/27/20 [Rx] Hydrocodone/Acetaminophen [[place] 5-325] 1 tab PO Q4HR PRN 3 Days #18 tab 04/27/20 [Rx] Follow up Appointment(s)/Referral(s): Earl Varghese MD [Primary Care Provider] - 1-2 days Jhon Lord MD [STAFF PHYSICIAN] - 05/03/20 1:15 pm Patient Instructions/Handouts: *Surgery [facility] - ([facility]) Laparoscopic Cholecystectomy, Low Fat Diet (DC), Laparoscopic Cholecystectomy (DC) Activity/Diet/Wound Care/Special Instructions: Patient can be discharged home at 7:00 tonight is tolerating diet from surgical standpoint No driving while taking [place] No lifting over 10 pounds You may shower. No soaking or tub baths for 2 weeks Very light activity until you are reevaluated at your follow up appointment with your surgeon low fat diet Discharge Disposition: HOME SELF-CARE
[2020-04-27 18:27] VITALS: BP 162/87; PULSE 109; RESP 16
[2020-04-27] MEDS: lisinopriL 20 MG TAB PO SCH (18:29)
== END 2020-04-27 19:51 | disposition home or self-care (01) ==
LOC: EC 04:38 → 1SOBS 14:48
PROVIDERS: ADMIT Family Medicine; ATTEND Family Medicine
DX: K81.2 Acute cholecystitis with chronic cholecystitis (principal); K82.8 Other specified diseases of gallbladder; I10 Essential (primary) hypertension; E66.9 Obesity, unspecified; Z79.899 Other long term (current) drug therapy; Z68.38 Body mass index [BMI] 38.0-38.9, adult; Z83.49 Family history of other endocrine, nutritional and metabolic diseases; Z82.49 Family history of ischemic heart disease and other diseases of the circulatory system
CPT/HCPCS: 47562; 96361 ×3; 96376 ×4; 96374; 96375; 99285; 36415; 88304; 80053 ×2; 82150; 83605; 83690 ×2; 83735; 85025 ×2; 85610; 85730; 76705; 74177; 78227; G0378 ×3; A9537; J2250; J0330; J1644; J2710; J2405 ×2; J0690; J2805; J2001; J3010; J1170 ×5; J1885; J2704; C9113; Q9967

== ENCOUNTER 2020-07-10 18:04 | Emergency (ER) | payer BC ==
--- NOTE | 2020-07-10 19:04 | XR ---
EXAMINATION TYPE: XR chest 2V DATE OF EXAM: 07/10/2020 COMPARISON: None available. HISTORY: Shortness of breath. TECHNIQUE: Frontal and lateral views of the chest are obtained. FINDINGS: There are moderate perihilar and bibasilar patchy groundglass opacities. No pleural effusi on, or pneumothorax seen. The cardiac silhouette size is within normal limits. The osseous structu res are intact. IMPRESSION: Bilateral infiltrates.
[2020-07-10] MEDS ORDERED: ACETAMINOPHEN TAB 500 MG TAB PO STA (19:21)
[2020-07-10] MEDS ORDERED: IBUPROFEN 600 MG TAB PO STA (19:22)
[2020-07-10] MEDS ORDERED: LORazepam 1 MG TAB PO STA (19:24)
[2020-07-10] MEDS ORDERED: LORazepam 2 MG/ML INJ IV STA (19:25)
[2020-07-10] MEDS ORDERED: SODIUM CHLORIDE 0.9% 1,000 ML IV STA (19:31)
--- NOTE | 2020-07-10 19:32 | ED ---
General Adult HPI - General Chief complaint: Shortness of Breath Stated complaint: SOB Time Seen by Provider: 07/10/20 19:12 Source: patient Mode of arrival: ambulatory Limitations: no limitations - History of Present Illness Initial comments: 35-year-old male presents to the emergency department for a chief complaint of shortness of breath. Patient reports his has had Covid for about 2 weeks. Patient reports that he has had symptoms of Covid for 10 days now. States that he has had a fever and cough on and off. States that the past 3 days he has become short of breath with today being the worst day of symptoms. Patient denies history of asthma or COPD. Denies any smoking history. Patient states he cannot stop coughing. He denies chest pain.patient does state that he is very anxious right now. Patient has no other complaints at this time including chest pain, abdominal pain, nausea or vomiting, headache, or visual changes. - Related Data Home Medications Medication Instructions Recorded Confirmed amLODIPine BESYLATE/BENAZEPRIL 1 cap PO DAILY@1500 04/25/20 04/25/20 [Lotrel 5-20 MG] Previous Rx's Medication Instructions Recorded Docusate [Colace] 100 mg PO BID #30 capsule 04/27/20 HYDROcodone/APAP 5-325MG [[place] 1 each PO Q4HR PRN #28 tab 04/27/20 5-325] Hydrocodone/Acetaminophen [[place] 1 tab PO Q4HR PRN 3 Days #18 tab 04/27/20 5-325] Benzonatate [Tessalon Perles] 200 mg PO Q8H PRN #15 capsule 07/10/20 Allergies Allergy/AdvReac Type Severity Reaction Status Date / Time No Known Allergies Allergy Verified 04/25/20 08:33 Review of Systems ROS Statement: Those systems with pertinent positive or pertinent negative responses have been documented in the HPI. ROS Other: All systems not noted in ROS Statement are negative. Past Medical History Past Medical History: Hypertension History of Any Multi-Drug Resistant Organisms: None Reported Past Surgical History: No Surgical Hx Reported Past Anesthesia/Blood Transfusion Reactions: No Reported Reaction Past Psychological History: No Psychological Hx Reported Smoking Status: Never smoker Past Alcohol Use History: Occasional Past Drug Use History: None Reported - Past Family History Mother Family Medical History: Thyroid Disorder Father Family Medical History: Coronary Artery Disease (CAD) General Exam Limitations: no limitations General appearance: alert, in no apparent distress Head exam: Present: atraumatic, normocephalic, normal inspection Eye exam: Present: normal appearance, PERRL, EOMI. Absent: scleral icterus, conjunctival injection, periorbital swelling ENT exam: Present: normal exam, mucous membranes moist Neck exam: Present: normal inspection, full ROM. Absent: tenderness, meningismus, lymphadenopathy Respiratory exam: Present: normal lung sounds bilaterally, other (Frequent coughing). Absent: respiratory distress, wheezes, rales, rhonchi, stridor Cardiovascular Exam: Present: regular rate, normal rhythm, normal heart sounds. Absent: systolic murmur, diastolic murmur, rubs, gallop, clicks GI/Abdominal exam: Present: soft, normal bowel sounds. Absent: distended, tenderness, guarding, rebound, rigid Course Vital Signs 07/10/20 07/10/20 18:42 20:11 Temperature 100.7 F H Pulse Rate 104 H Respiratory 20 Rate Blood Pressure 109/66 O2 Sat by Pulse 97 92 L Oximetry Medical Decision Making - Medical Decision Making Patient resents with a fever 100.7 and reflexive tachycardia of 104. Oxygen is between 90-97%. When I'm in the room it hovers around 94%. Patient found to be Covid positive. CBC does show leukocytopenia consistent with viral infection. CMP does show mild transaminitis which is consistent with previous results. Patient does have elevated CRP and LDH consistent with [place]an infection. Coronavirus is detected. Chest x-ray does show bilateral infiltrates. I reevaluated patient. Oxygen is 94%. At this time patient is not requiring admission. Patient does agree to antibody infusion. I discussed return parameters. I discussed the patient is getting more short of breath he does need to return to the emergency room. Otherwise he will follow-up with his doctor. - Lab Data Result diagrams: 07/10/20 20:05 07/10/20 20:05 Lab Results 07/10/20 07/10/20 07/10/20 Range/Units 18:47 20:05 20:05 WBC 2.9 L (3.8-10.6) k/uL RBC 5.67 (4.30-5.90) m/uL Hgb 17.3 (13.0-17.5) gm/dL Hct 48.8 (39.0-53.0) % MCV 86.1 (80.0-100.0) fL MCH 30.6 (25.0-35.0) pg MCHC 35.5 (31.0-37.0) g/dL RDW 12.3 (11.5-15.5) % Plt Count 140 L (150-450) k/uL MPV 8.1 Neutrophils % 70 % Lymphocytes % 20 % Monocytes % 6 % Eosinophils % 3 % Basophils % 1 % Neutrophils # 2.0 (1.3-7.7) k/uL Lymphocytes # 0.6 L (1.0-4.8) k/uL Monocytes # 0.2 (0-1.0) k/uL Eosinophils # 0.1 (0-0.7) k/uL Basophils # 0.0 (0-0.2) k/uL PT 10.0 (9.0-12.0) sec INR 0.9 (<1.2) APTT 25.0 (22.0-30.0) sec Sodium (137-145) mmol/L Potassium (3.5-5.1) mmol/L Chloride (98-107) mmol/L Carbon Dioxide (22-30) mmol/L Anion Gap mmol/L BUN (9-20) mg/dL Creatinine (0.66-1.25) mg/dL Est GFR (CKD-EPI)AfAm (>60 ml/min/1.73 sqM) Est GFR (CKD-EPI)NonAf (>60 ml/min/1.73 sqM) Glucose (74-99) mg/dL Plasma Lactic Acid Desmond (0.7-2.0) mmol/L Calcium (8.4-10.2) mg/dL Magnesium (1.6-2.3) mg/dL Total Bilirubin (0.2-1.3) mg/dL AST (17-59) U/L ALT (4-49) U/L Alkaline Phosphatase (38-126) U/L Lactate Dehydrogenase (313-618) U/L C-Reactive Protein (<10.0) mg/L Total Protein (6.3-8.2) g/dL Albumin (3.5-5.0) g/dL Coronavirus (PCR) Detected A (Not Detectd) 07/10/20 07/10/20 Range/Units 20:05 20:05 WBC (3.8-10.6) k/uL RBC (4.30-5.90) m/uL Hgb (13.0-17.5) gm/dL Hct (39.0-53.0) % MCV (80.0-100.0) fL MCH (25.0-35.0) pg MCHC (31.0-37.0) g/dL RDW (11.5-15.5) % Plt Count (150-450) k/uL MPV Neutrophils % % Lymphocytes % % Monocytes % % Eosinophils % % Basophils % % Neutrophils # (1.3-7.7) k/uL Lymphocytes # (1.0-4.8) k/uL Monocytes # (0-1.0) k/uL Eosinophils # (0-0.7) k/uL Basophils # (0-0.2) k/uL PT (9.0-12.0) sec INR (<1.2) APTT (22.0-30.0) sec Sodium 138 (137-145) mmol/L Potassium 4.2 (3.5-5.1) mmol/L Chloride 104 (98-107) mmol/L Carbon Dioxide 25 (22-30) mmol/L Anion Gap 9 mmol/L BUN 14 (9-20) mg/dL Creatinine 1.02 (0.66-1.25) mg/dL Est GFR (CKD-EPI)AfAm >90 (>60 ml/min/1.73 sqM) Est GFR (CKD-EPI)NonAf >90 (>60 ml/min/1.73 sqM) Glucose 110 H (74-99) mg/dL Plasma Lactic Acid Desmond 1.8 (0.7-2.0) mmol/L Calcium 8.8 (8.4-10.2) mg/dL Magnesium 1.9 (1.6-2.3) mg/dL Total Bilirubin 0.8 (0.2-1.3) mg/dL AST 125 H (17-59) U/L ALT 145 H (4-49) U/L Alkaline Phosphatase 69 (38-126) U/L Lactate Dehydrogenase 1240 H (313-618) U/L C-Reactive Protein 25.5 H (<10.0) mg/L Total Protein 7.4 (6.3-8.2) g/dL Albumin 4.4 (3.5-5.0) g/dL Coronavirus (PCR) (Not Detectd) Disposition Clinical Impression: COVID-19 Disposition: HOME SELF-CARE Condition: Good Instructions (If sedation given, give patient instructions): Coronavirus Disease 2019 (COVID-19) Additional Instructions: Take Motrin and Tylenol alternating up to every 3 hours for fever. Drink plenty of fluids. Take vitamins especially vitamin C and zinc. Take Tessalon Perles for cough. If you are having worsening shortness of breath you need to return to the emergency room. Otherwise follow-up with primary care. Prescriptions: Benzonatate [Tessalon Perles] 200 mg PO Q8H PRN #15 capsule PRN Reason: Cough Is patient prescribed a controlled substance at d/c from ED?: No Referrals: Earl Varghese MD [Primary Care Provider] - 1-2 days
[2020-07-10 20:20] LABS: Basophils % (A) 1 %; Eosinophils # (A) 0.1 k/uL (0-0.7); Eosinophils % (A) 3 %; HCT 48.8 % (39.0-53.0); HGB 17.3 gm/dL (13.0-17.5); Lymphocytes # (A) 0.6 k/uL (1.0-4.8); Lymphocytes % (A) 20 %; MCH 30.6 pg (25.0-35.0); MCHC 35.5 g/dL (31.0-37.0); MCV 86.1 fL (80.0-100.0); Mean Platelet Volume 8.1; Monocytes # (A) 0.2 k/uL (0-1.0); Monocytes % (A) 6 %; Neutrophils % (A) 70 %; Platelet Count 140 k/uL (150-450); RBC 5.67 m/uL (4.30-5.90); RDW 12.3 % (11.5-15.5); WBC 2.9 k/uL (3.8-10.6)
[2020-07-10 20:32] LABS: INR 0.9 (<1.2)
[2020-07-10 20:37] LABS: ALT 145 U/L (4-49); AST 125 U/L (17-59); African American GFR (CKD) >90 (>60 ml/min/1.73 sqM); Albumin 4.4 g/dL (3.5-5.0); Alkaline Phosphatase 69 U/L (38-126); Anion Gap 9 mmol/L; Blood Urea Nitrogen 14 mg/dL (9-20); C Reactive Protein 25.5 mg/L (<10.0); Calcium 8.8 mg/dL (8.4-10.2); Carbon Dioxide 25 mmol/L (22-30); Chloride 104 mmol/L (98-107); Glucose 110 mg/dL (74-99); LDH 1240 U/L (313-618); Magnesium 1.9 mg/dL (1.6-2.3); Non-African American GFR(CKD) >90 (>60 ml/min/1.73 sqM); Sodium 138 mmol/L (137-145); Total Bilirubin 0.8 mg/dL (0.2-1.3); Total Protein 7.4 g/dL (6.3-8.2)
[2020-07-10 20:44] LABS: Potassium 4.2 mmol/L (3.5-5.1)
[2020-07-10] MEDS ORDERED: MORPHINE SULFATE 4 MG/ML SYRINGE IVP STA (21:38)
[2020-07-10] MEDS ORDERED: BAMLANIVIMAB 700 MG in SODIUM CHLORIDE 0.9% 50 ML IVPB ONE (22:00)
[2020-07-10] MEDS ORDERED: ONDANSETRON 4 MG/2 ML VIAL IVP STA (22:29)
[2020-07-10] MEDS ORDERED: diphenhydrAMINE 50 MG/ML 1 ML VIAL IVP STA (22:29)
[2020-07-10] MEDS ORDERED: methylPREDNISolone SOD SUCCI 125 MG/2 ML VIAL IV STA (22:29)
[2020-07-10 23:51] VITALS: BP 142/81; PULSE 78; RESP 18; TEMP 99
[2020-07-11 10:01] LABS: Ferritin 965.6 ng/mL (22.0-322.0)
== END 2020-07-10 23:59 | disposition home or self-care (01) ==
LOC: EC 18:04
DX: U07.1 COVID-19 (principal); I10 Essential (primary) hypertension
CPT/HCPCS: 36415; 80053; 82728; 83605; 83615; 83735; 85025; 85610; 85730; 86140; 84145; 87635; 71046; 99285; 96374; 96375; 96361; J2060; J2270; J2405; Q0239

== ENCOUNTER → 2021-10-11 | Outpatient (CLI) | payer BC ==
--- NOTE | 2021-10-11 11:41 | CT ---
EXAMINATION TYPE: CT brain wo con DATE OF EXAM: 10/11/2021 COMPARISON: None available HISTORY: Persistent Headache CT DLP: 1121 mGycm Automated exposure control for dose reduction was used. TECHNIQUE: CT scan of the brain is performed without IV contrast administration. FINDINGS: No acute intracranial hemorrhage. No gross acute cortical infarct. No midline shift, herniation or ve ntriculomegaly. Unremarkable adan-white matter differentiation, basal cisterns, sella and CP angles. No gross space-o ccupying lesion, vasogenic edema or mass effect. Unremarkable orbits. Clear visualized paranasal sinuses and mastoid air cells. Unremarkable calvarial bones. Suspected fractured right nasal bone, likely chronic. IMPRESSION: No acute intracranial abnormality or gross space-occupying lesion by this nonenhanced CT scan. Further MRI assessment can be considered if clinically required.
== END | disposition home or self-care (01) ==
LOC: RADCTMAIN 10:51
PROVIDERS: ATTEND Family Medicine
DX: G44.52 New daily persistent headache (NDPH) (principal)
CPT/HCPCS: 70450

== ENCOUNTER 2022-04-13 17:21 | Emergency (ER) | payer BC ==
[2022-04-13 17:32] VITALS: TEMP 98.4
[2022-04-13] MEDS ORDERED: HYDROcodone/APAP 7.5-325MG 1 EACH TAB PO ONE (18:02)
[2022-04-13] MEDS ORDERED: KETOROLAC 15 MG/ML 1 ML VIAL IM STA (18:02)
[2022-04-13] MEDS ORDERED: AMOXIC-POT CLAV 875-125MG 1 EACH TAB PO STA (18:03)
[2022-04-13] MEDS ORDERED: DIPH,PERTUS(ACELL)TETVAC-LF 0.5 ML VIAL IM ONE (18:03)
[2022-04-13] MEDS ORDERED: LIDOCAINE 1% INJ 10MG/ML (30 ML VIAL-PF) SQ ONE (18:04)
[2022-04-13] MEDS ORDERED: ACET/COD 300 MG/30 MG STARTER PACK 6 TAB BTL PO STA (18:30)
[2022-04-13] MEDS ORDERED: IBUPROFEN 600 MG STARTER PACK 4 TAB BTL PO STA (18:31)
--- NOTE | 2022-04-13 18:51 | XR ---
EXAMINATION TYPE: XR hand complete LT DATE OF EXAM: 04/13/2022 6:19 PM INDICATION: Patient age:Male; 37 years old; Reason for study: animal bite; COMPARISON: None TECHNIQUE: Frontal, lateral and oblique views of the left hand were obtained. FINDINGS: Normal alignment of the visualized joints. No acute osseous pathology is identified. No e vidence of soft tissue swelling. Suggestion of radiopaque foreign body in the skin of the third digit radial aspect. IMPRESSION: 1. No acute osseous pathology. 2. Radiopaque foreign body suggested in the skin of the third digit radial aspect.
--- NOTE | 2022-04-13 18:52 | XR ---
EXAMINATION TYPE: XR forearm RT DATE OF EXAM: 04/13/2022 6:19 PM INDICATION: Patient age:Male; 37 years old; Reason for study: dog bite; [facility]. COMPARISON: None TECHNIQUE: The right forearm was examined in AP and lateral projections. FINDINGS: No acute osseous pathology, soft tissue swelling or joint dislocations are seen. IV cannula noted. IMPRESSION: No evidence of acute fracture.
[2022-04-13] MEDS ORDERED: HYDROmorphone 0.5 MG/0.5 ML SYRINGE IM STA (19:32)
[2022-04-13] MEDS ORDERED: HYDROmorphone 0.5 MG/0.5 ML SYRINGE IVP STA (19:35)
--- NOTE | 2022-04-13 19:58 | ED ---
Animal Bite HPI - General Chief Complaint: Animal Bite Stated Complaint: Dog bite, hand injury Time Seen by Provider: 04/13/22 17:48 Source: patient Mode of arrival: wheelchair Limitations: no limitations - History of Present Illness Initial Comments: Patient is a 29-year-old male who presents to the emergency department for dog bite. Patient was breaking up a fight between his 2 dogs when he was bit in his left middle finger as well as right forearm. Patient reports significant pain in his left middle finger with tingling. Last tetanus unknown. The dog is up-to-date on vaccinations, no concern for rabies - Related Data Home Medications Medication Instructions Recorded Confirmed amLODIPine BESYLATE/BENAZEPRIL 1 cap PO DAILY@1500 04/25/20 04/25/20 [Lotrel 5-20 MG] Previous Rx's Medication Instructions Recorded Docusate [Colace] 100 mg PO BID #30 capsule 04/27/20 HYDROcodone/APAP 5-325MG [[place] 1 each PO Q4HR PRN #28 tab 04/27/20 5-325] Hydrocodone/Acetaminophen [[place] 1 tab PO Q4HR PRN 3 Days #18 tab 04/27/20 5-325] Benzonatate [Tessalon Perles] 200 mg PO Q8H PRN #15 capsule 07/10/20 Amoxic-Pot Clav 875-125Mg 1 tab PO BID 10 Days #20 tab 04/13/22 [Augmentin 875-125] HYDROcodone/APAP 5-325MG [[place] 1 tab PO Q4HR PRN 3 Days #18 tab 04/13/22 5-325] Ibuprofen [Motrin] 800 mg PO Q8HR PRN #30 tab 04/13/22 Allergies Allergy/AdvReac Type Severity Reaction Status Date / Time No Known Allergies Allergy Verified 04/25/20 08:33 Review of Systems ROS Statement: Those systems with pertinent positive or pertinent negative responses have been documented in the HPI. ROS Other: All systems not noted in ROS Statement are negative. Past Medical History Past Medical History: Hypertension History of Any Multi-Drug Resistant Organisms: None Reported Past Surgical History: No Surgical Hx Reported Past Anesthesia/Blood Transfusion Reactions: No Reported Reaction Past Psychological History: No Psychological Hx Reported Smoking Status: Never smoker Past Alcohol Use History: Occasional Past Drug Use History: None Reported - Past Family History Mother Family Medical History: Thyroid Disorder Father Family Medical History: Coronary Artery Disease (CAD) General Exam Limitations: no limitations General appearance: alert, in no apparent distress Head exam: Present: atraumatic, normocephalic, normal inspection Respiratory exam: Present: normal lung sounds bilaterally. Absent: respiratory distress, wheezes, rales, rhonchi, stridor Cardiovascular Exam: Present: regular rate, normal rhythm, normal heart sounds. Absent: systolic murmur, diastolic murmur, rubs, gallop, clicks Extremities exam: Present: other (Deep irregular laceration to palmar aspect of the left third digit, about penitentiary down digit. There does appear to be nerve damage, possibly tendon interruption. Limited flexion of DIP joint, possiby due to pain. Extension intact. Neurovascularly intact. 4-5 puncture wounds of right forearm without) Neurological exam: Present: alert, oriented X3, CN II-XII intact Psychiatric exam: Present: normal affect, normal mood Skin exam: Present: warm, dry, intact, normal color. Absent: rash Course Vital Signs 04/13/22 04/13/22 04/13/22 17:29 20:05 22:07 Temperature 98.4 F Pulse Rate 112 H 66 69 Respiratory 20 18 18 Rate Blood Pressure 81/50 251/122 185/120 O2 Sat by Pulse 99 96 96 Oximetry Medical Decision Making - Medical Decision Making Was pt. sent in by a medical professional or institution? No Did you speak to anyone other than the patient for history? No Did you review nursing and triage notes? Yes, and I disagree. Patient does have some movement of the middle finger. Triage note also notes hypotension. I did do a manual measurement which was 215/105. Were old charts reviewed? No Differential Diagnosis? Laceration, finger fracture, tendon injury EKG interpreted by me (3pts min.)? NA X-rays interpreted by me (1pt min.)? Yes, left hand and right forearm x-ray negative for fracture. There is concern for foreign body in the left third digit CT interpreted by me (1pt min.)? NA U/S interpreted by me (1pt. min.)? NA What testing was considered but not performed? (CT, X-rays, U/S, labs)? Why? NA What meds were considered but not given? Why? NA Did you discuss the management of the patient with other professionals? No Did you reconcile home meds? No, patient discharged. Was smoking cessation discussed for >3mins.? No-patient denies tobacco use. Was critical care preformed (if so, how long)? No Were there social determinants of health that impacted care today? How? (H omelessness, low income, unemployed, alcoholism, drug addiction, transportation, low edu. Level, literacy, decrease access to med. care, fdc, rehab)? No Was there de-escalation of care discussed even if they declined? (Discuss DNR or withdrawal of care, Hospice)? No What co-morbidities impacted this encounter? (DM, HTN, Smoking, COPD, CAD, Cancer, CVA, Hep., AIDS, mental health diagnosis, sleep apnea, morbid obesity)? HTN Was patient admitted / discharged? This is a 37-year-old male presenting with dog bite. No fracture on x-ray. Due to deformity of the laceration, closure indicated. I removed multiple small pieces of what appeared to be stones. I irrigated the wound extensively. There is concern for nerve/tendon injury. Skin edges were approximated very loosely with 5 sutures. Tetanus and Augmentin given. Patient in significant pain, will discharge with short course of Antelope. He will continue Augmentin at home and follow up with strategy specialist. Patient had very high blood pressure in the emergency department. Patient asymptomatic. He has history of hypertension, noncompliant with his medication. Patient given Catapres in the emergency department with some improvement in blood pressure. We discussed risks of untreated blood pressure in detail. Patient to follow-up with primary care provider. He's had encouraged to continue his blood pressure medication and check his blood pressure at home. Undiagnosed new problem with uncertain prognosis? No Drug Therapy requiring intensive monitoring for toxicity (Heparin, Nitro, Insulin, Cardizem)? No Were any procedures done? Yes, laceration repair Diagnosis/symptom? Dog bite Acute, or Chronic, or Acute on Chronic? Acute Uncomplicated (without systemic symptoms) or Complicated (systemic symptoms)? NA Side effects of treatment? NA Exacerbation, Progression, or Severe Exacerbation] NA Poses a threat to life or bodily function? No Diagnosis/symptom? Lac Acute, or Chronic, or Acute on Chronic? Hypertension Uncomplicated (without systemic symptoms) or Complicated (systemic symptoms)? Uncomplicated Side effects of treatment? NA Exacerbation, Progression, or Severe Exacerbation] NA Poses a threat to life or bodily function? Possibly Dr. Malone is my attending . Disposition Clinical Impression: Dog bite, Noncompliance with medication regimen, Uncontrolled hypertension Disposition: HOME SELF-CARE Condition: Good Instructions (If sedation given, give patient instructions): Animal Bite (ED) Additional Instructions: Take medication as directed. Ice injury. Please follow-up with strategy specialist in 1-2 days as there is concern for tendon/nerve injury. It is also important to follow-up with primary care provider regarding her blood pressure. It is crucial that you take your blood pressure medication daily as directed. Return to emergency department if you experience new, concerning, or worsening symptoms.. Prescriptions: Amoxic-Pot Clav 875-125Mg [Augmentin 875-125] 1 tab PO BID 10 Days #20 tab Ibuprofen [Motrin] 800 mg PO Q8HR PRN #30 tab PRN Reason: Pain HYDROcodone/APAP 5-325MG [[place]elope 5-325] 1 tab PO Q4HR PRN 3 Days #18 tab PRN Reason: Pain Is patient prescribed a controlled substance at d/c from ED?: No Referrals: Earl Varghese MD [Primary Care Provider] - 1-2 days Usha Torres NPC [Nurse Practitioner] - 1-2 days Time of Disposition: 19:58
[2022-04-13 20:06] VITALS: RESP 18
[2022-04-13] MEDS ORDERED: cloNIDine HCL 0.1 MG TAB PO STA (20:16)
[2022-04-13 22:08] VITALS: BP 185/120; PULSE 69
== END 2022-04-13 22:21 | disposition home or self-care (01) ==
LOC: EC 17:21
DX: S61.253A Open bite of left middle finger without damage to nail, initial encounter (principal); Z91.14 Patient's other noncompliance with medication regimen; I10 Essential (primary) hypertension; Z23 Encounter for immunization; Z79.899 Other long term (current) drug therapy; W54.0XXA Bitten by dog, initial encounter
CPT/HCPCS: 73090; 73130; 90715; 99284; 90471; 96374; 96372; J2001; J1885; J1170

== ENCOUNTER → 2022-04-20 | Day surgery (SDC) | payer BC ==
--- NOTE | 2022-04-19 22:19 | P.HPOR ---
History of Present Illness H&P Date: 04/19/22 Chief Complaint: Left middle finger digital nerve laceration Subjective: This is a 37 year old male that presents today for initial evaluation regarding a left middle finger dog bit injury that occurred on 04/13/22 when he was trying to break up a dog jenise. He went to the ED where his wounds were irrigated and cleaned and sutured closed. He has been on antibiotics since. He complains of stiffness and numbness distal to the laceration on the left middle finger near the radial boarder of the digit. Physical Examination: LUE: AIN/PIN/Radial/Ulnar/Median motor intact. Radial/Ulnar/Median SILT. 2+/4 Radial/Ulnar pulses palpated. 5/5 APB, 5/5 FDI. Negative Finkelsteins, negative CMC grind, negative Durkan's compression. 3cm oblique laceration on volar aspect of the middle finger overlying the proximal phalanx. Subjective paresthesias in the radial digital nerve distribution distal to the laceration. FDP/FDS intact against resistance. No purulent drainage. Slight erythema around laceration with sutures intact. Imaging: X-Rays of the left hand 3V reviewed from the ED on 04/13/22 demonstrate no acute fracture/dislocation. Impression: 1.)Left middle finger dog bite with 3cm volar laceration 2.) Left middle finger radial digital nerve laceration. Plan: Diagnosis and treatment options were discussed with the patient. He has findings concerning for left middle finger radial digital nerve laceration. I recommend surgical exploration with possible digital nerve repair and flexor tendon repair. We discussed the prognosis and that even after nerve repair he may not gain full sensation back but the goal is to provide protective sensation which can take 9 months to a year to occur. Risks and benefits of surgery including bleeding, infection, damage to surrounding tissue, need for further surgery, residual numbness were discussed and the patient wished to go forward with surgery. I anticipate 4 weeks off of work post operatively and he may be off starting today to the day of surgery. The patient was agreeable with this plan. -Eben Mora DO Orthopedic Hand/Upper Extremity Surgeon Past Medical History Past Medical History: Hypertension, Musculoskeletal Disorder, Skin Disorder Additional Past Medical History / Comment(s): dog bite injury on 04/13 to left hand History of Any Multi-Drug Resistant Organisms: None Reported Past Surgical History: Cholecystectomy Past Anesthesia/Blood Transfusion Reactions: No Reported Reaction Smoking Status: Never smoker - Past Family History Mother Family Medical History: Thyroid Disorder Father Family Medical History: Coronary Artery Disease (CAD) Medications and Allergies Home Medications Medication Instructions Recorded Confirmed Type amLODIPine BESYLATE/BENAZEPRIL 1 cap PO DAILY 04/25/20 04/19/22 History [Lotrel 5-20 MG] HYDROcodone/APAP 5-325MG [[place] 1 each PO Q4HR PRN #28 tab 04/27/20 04/19/22 Rx 5-325] Amoxic-Pot Clav 875-125Mg 1 tab PO BID 10 Days #20 tab 04/13/22 04/19/22 Rx [Augmentin 875-125] Ibuprofen [Motrin] 800 mg PO Q8HR PRN #30 tab 04/13/22 04/19/22 Rx Docusate [Colace] 100 mg PO HS 04/19/22 04/19/22 History Allergies Allergy/AdvReac Type Severity Reaction Status Date / Time No Known Allergies Allergy Verified 04/25/20 08:33 Physical Examination Osteopathic Statement: *. No significant issues noted on an osteopathic structural exam other than those noted in the History and Physical/Consult.
[~2022-04-20] MED LIST: BUPIVACAINE (PF) 0.25% 30 ML VIAL SQ ONE; DEXAMETHASONE SOD PHOSPHATE 4 MG/ML 1 ML VIAL IV ONE; DEXAMETHASONE SOD PHOSPHATE 4 MG/ML 1 ML VIAL ONE; KETOROLAC 15 MG/ML 1 ML VIAL IVP ONE; LACTATED RINGERS 1,000 ML IV SCH; LIDOCAINE 1% (10MG/ML) FOR IV START INTRADERMA PRN; LIDOCAINE 2% INJ 20 MG/ML (2 ML VIAL) ONE; MIDAZOLAM 2 MG/2 ML VIAL IV PRN; MIDAZOLAM 2 MG/2 ML VIAL ONE; ONDANSETRON 4 MG/2 ML VIAL IVP ONE; PROPOFOL 10 MG/ML 20 ML VIAL IV ONE; ROPIVACAINE 5 MG/ML 30 ML VIAL ONE; SUCCINYLCHOLINE CHLORIDE 200 MG/10 ML VIAL IV ONE; fentaNYL (PF) 50 MCG/ML 2 ML AMP ONE
[2022-04-20 14:53] VITALS: TEMP 97.6
[2022-04-20] MEDS: HYDROmorphone 0.5 MG/0.5 ML SYRINGE IVP PRN ×3 (17:51→18:31)
[2022-04-20 19:46] VITALS: RESP 14
[2022-04-20 19:49] VITALS: BP 149/71; PULSE 71
--- NOTE | 2022-04-20 20:27 | P.OP ---
Date of Procedure: 04/20/22 Preoperative Diagnosis: 1.) Left middle finger complex laceration 3cm. 2.) Left middle finger radial digital nerve laceration Postoperative Diagnosis: 1.) Left middle finger complex laceration 3cm. 2.) Left middle finger radial digital nerve laceration with 3.5cm deficit Procedure(s) Performed: 1.) Left middle finger complex laceration repair, 3cm (58242) 2.) Left middle finger wound exploration () Anesthesia: GETA Surgeon: Eben Mora Estimated Blood Loss (ml): 0 Pathology: none sent Condition: stable Disposition: PACU Description of Procedure: This is a 37 year old male who sustained a left middle finger laceration with numbness in the effected finger distal to the laceration, findings concerning for possible digital nerve laceration. He presents today for surgical exploration of his wound with possible nerve/tendon repair. Risks and benefits of surgery were discussed with the patient including bleeding, damage to surrounding tissue, infection, need for further surgery as well as risks of anesthesia including pulmonary embolism and even and the patient wished to proceed with surgical intervention. The patient was seen in the pre-operative area by myself. Consent and H&P were completed and updated. The correct extremity was marked in the pre-operative area by myself and all other questions were answered. Operative Narrative: The patient was brought to the operating room by the department of anesthesia. They remained on the portable stretcher and a rolling hand table was brought to the side of the operative extremity. Pre-operative time out was performed indicating the correct patient, procedure and laterality. All in the room agreed. Pre-operative antibiotics were given prior to skin incision. The patient was then drifted off to sleep by the department of anesthesia. A nonsterile tourniquet was then applied to the operative extremity and the left upper extremity was then prepped and draped in normal sterile fashion. The operative extremity was the exsanguinated with an esmarch bandage and the tourniquet was inflated to 250mmHg. Pre-existing sutures were removed from the oblique laceration at the level of the proximal phalanx. Laceration ends were extended proximally and distally in a Luis type fashion. 15 blade scalpel was used to debride wound edges of devitalized skin. Blunt dissection was taken down through subcutaneous tissues. There appeared to be a rent in the A2 nestor with flexor tendon exposed, however after further exploration no flexor tendon injury was present. Ulnar neurovascular bundle was carefully dissected out and found to be intact. The radial neurovascular bundle was found to be injured. There was complete transection of the radial digital nerve and the digital artery was found to be contused, but intact to the left middle finger. Upon identification proximally, there was no nerve identified distally so the wound was further extended distally to the level of the DIP joint crease. At this level the distal stump of the radial digital nerve was identified and appeared to be mottle and tortuous in appearance. There was substantial segmental loss of the digital nerve with a defect measured at 3.5cm between the proximal and distal ends of what remained of the nerve. This gap was not able to be adequately reduced with maximum finger flexion and no type of direct nerve repair would be possible due to the large defect. The wound was irrigated with sterile saline. Closure was performed with 4-0 nylon suture. Digital nerve block was performed with 6cc's of 0.5% bupivicaine. Sterile dressing consisting of fluffs, adaptic, bacitracin, cast padding and an keven wrap. Tourniquet was let down and the digit had immediate perfusion. The patient was then woken by the department of anesthesia and transferred to PACU in stable condition. Eben Mora D.O. Orthopedic Hand/Upper Extremity Surgeon
--- NOTE | 2022-04-22 14:22 | P.ANPRN ---
Procedure Note - Anesthesia - Nerve Block Performed Left Supraclavicular Single Time Out Performed: Yes Date of Procedure: 04/20/22 Procedure Start Time: 19:12 Procedure Stop Time: 19:17 Location of Patient: PreOp Indication: Acute Post-Operative Pain, Requested by Surgeon Sedation Type: Sedate with meaningful contact maintained Preparation: Sterile Prep Position: Supine Needle Types: Pajunk Needle Gauge: 21 Ultrasound used to visualize needle placement: Yes Ultrasound used to observe medication spread: Yes Blood Aspirated: No Pain Paresthesia on Injection Noted: No Resistance on Injection: Normal Image Stored and Saved: Yes Events: Uneventful and Well Tolerated (Ropivacaine 0.5% 20 mL plus dexamethasone 4mg)
== END | disposition home or self-care (01) ==
LOC: OR 14:26
PROVIDERS: ATTEND Orthopaedic Surgery Hand Surgery
DX: S64.493A Injury of digital nerve of left middle finger, initial encounter (principal); S61.253A Open bite of left middle finger without damage to nail, initial encounter; I10 Essential (primary) hypertension; Z79.1 Long term (current) use of non-steroidal anti-inflammatories (NSAID); Z82.49 Family history of ischemic heart disease and other diseases of the circulatory system; Z83.49 Family history of other endocrine, nutritional and metabolic diseases; Z90.49 Acquired absence of other specified parts of digestive tract; W54.0XXA Bitten by dog, initial encounter
CPT/HCPCS: 64415; 76942; 13121; J2250; J0330; J1100; J0690; J2405; J3010; J2795; J1885; J2704; J1170; J2001

== ENCOUNTER 2022-11-03 19:36 | Emergency (ER) | payer BC ==
[2022-11-03 19:42] VITALS: PULSE 96; RESP 18; TEMP 98.4
--- NOTE | 2022-11-03 20:06 | ED ---
General Adult HPI - General Chief complaint: Extremity Problem,Nontraumatic Stated complaint: Leg Injury Time Seen by Provider: 11/03/22 19:43 Source: patient, RN notes reviewed Mode of arrival: ambulatory Limitations: no limitations - History of Present Illness Initial comments: 37-year-old male with past medical history of hypertension presents to the emergency department for chief complaint of leg pain. Patient states that he was pitching during a softball game when the ball came off the bat and hit him in the right kohler. He reports normal range of motion to his lower extremity. Patient states that he is not having numbness and tingling in the leg. He reports that he is able to walk on it and played another hour during his softball game. He has not taken anything for pain. He reports he did not take his blood pressure medication today. - Related Data Home Medications Medication Instructions Recorded Confirmed amLODIPine BESYLATE/BENAZEPRIL 1 cap PO DAILY 04/25/20 04/19/22 [Lotrel 5-20 MG] Docusate [Colace] 100 mg PO HS 04/19/22 04/20/22 Previous Rx's Medication Instructions Recorded HYDROcodone/APAP 5-325MG [[place] 1 each PO Q4HR PRN #28 tab 04/27/20 5-325] Amoxic-Pot Clav 875-125Mg 1 tab PO BID 10 Days #20 tab 04/13/22 [Augmentin 875-125] Ibuprofen [Motrin] 800 mg PO Q8HR PRN #30 tab 04/13/22 Allergies Allergy/AdvReac Type Severity Reaction Status Date / Time No Known Allergies Allergy Verified 11/03/22 19:37 Review of Systems ROS Statement: Those systems with pertinent positive or pertinent negative responses have been documented in the HPI. ROS Other: All systems not noted in ROS Statement are negative. Past Medical History Past Medical History: Hypertension, Musculoskeletal Disorder, Skin Disorder Additional Past Medical History / Comment(s): dog bite injury on 04/13 to left hand History of Any Multi-Drug Resistant Organisms: None Reported Past Surgical History: Cholecystectomy Past Anesthesia/Blood Transfusion Reactions: No Reported Reaction Past Psychological History: No Psychological Hx Reported Smoking Status: Never smoker Past Alcohol Use History: None Reported Past Drug Use History: None Reported - Past Family History Mother Family Medical History: Thyroid Disorder Father Family Medical History: Coronary Artery Disease (CAD) General Exam Limitations: no limitations General appearance: alert, in no apparent distress Head exam: Present: atraumatic, normocephalic, normal inspection Eye exam: Present: normal appearance ENT exam: Present: normal exam, mucous membranes moist Neck exam: Present: normal inspection. Absent: tenderness, meningismus, lymphadenopathy Respiratory exam: Present: normal lung sounds bilaterally. Absent: respiratory distress, wheezes, rales, rhonchi, stridor Cardiovascular Exam: Present: regular rate, normal rhythm, normal heart sounds. Absent: systolic murmur, diastolic murmur, rubs, gallop, clicks Extremities exam: Present: full ROM, tenderness (Right anterior leg), normal capillary refill, other (Subcutaneous hematoma to the right anterior leg, DP and PT pulses 2+). Absent: pedal edema, joint swelling Back exam: Present: normal inspection Neurological exam: Present: alert, oriented X3 Psychiatric exam: Present: normal affect, normal mood Skin exam: Present: warm, dry, intact, normal color. Absent: rash Course Vital Signs 11/03/22 11/03/22 19:38 20:59 Temperature 98.4 F Pulse Rate 96 Respiratory 18 Rate Blood Pressure 206/122 196/123 O2 Sat by Pulse 99 Oximetry Medical Decision Making - Medical Decision Making Was pt. sent in by a medical professional or institution ([facility], NEONATAL CRITICAL CARE NURSE, urgent care, hospital, or correction...) When possible be specific @ -No Did you speak to anyone other than the patient for history (EMS, parent, family, police, friend...)? What history was obtained from this source @ -No Did you review nursing and triage notes (agree or disagree)? Why? @ -I reviewed and agree with nursing and triage notes Were old charts reviewed (outside hosp., previous admission, EMS record, old EKG, old radiological studies, urgent care reports/EKG's, correction records)? Report findings @ -No old charts were reviewed Differential Diagnosis (chest pain, altered mental status, abdominal pain women, abdominal pain men, vaginal bleeding, weakness, fever, dyspnea, syncope, headache, dizziness, GI bleed, back pain, seizure, CVA, palpatations, mental health, musculoskeletal)? @ -Differential Musculoskeletal Muscular strain, contusion, ligament sprain, fracture, arthritis, septic arthritis, bursitis, cellulitis, muscle spasm, nerve compression, DVT, arterial occlusion, herpes zoster, electrolyte abnormality, tumor.... This is not meant to be in all inclusive list EKG interpreted by me (3pts min.). @ -None X-rays interpreted by me (1pt min.). @ -X-ray tib fib showed no evidence for acute fracture CT interpreted by me (1pt min.). @ -None done U/S interpreted by me (1pt. min.). @ -None done What testing was considered but not performed or refused? (CT, X-rays, U/S, labs)? Why? @ -None What meds were considered but not given or refused? Why? @ -None Did you discuss the management of the patient with other professionals (professionals i.e. , PA, NEONATAL CRITICAL CARE NURSE, lab, RT, psych nurse, social work administrator, air plant engineer, teacher, registration officer, hospice case manager)? Give summary @ -No Was smoking cessation discussed for >3mins.? @ -No Was critical care preformed (if so, how long)? @ -No Were there social determinants of health that impacted care today? How? (Homelessness, low income, unemployed, alcoholism, drug addiction, transportation, low edu. Level, literacy, decrease access to med. care, senior care, rehab)? @ -No Was there de-escalation of care discussed even if they declined (Discuss DNR or withdrawal of care, Hospice)? DNR status @ -No What co-morbidities impacted this encounter? (DM, HTN, Smoking, COPD, CAD, Cancer, CVA, ARF, Chemo, Hep., AIDS, mental health diagnosis, sleep apnea, morbid obesity)? @ -None Was patient admitted / discharged? Hospital course, mention meds given and route, prescriptions, significant lab abnormalities, going to OR and other pertinent info. @ -discharged. Patient presented to the emergency department for right leg injury. He states that he was hit with a softball when it came off of the back and hit him in the right leg. He has a softball size hematoma to the right anterior leg. Tib-fib x-ray was obtained which showed no evidence for acute fracture. Patient was given Toradol and Tylenol for pain. He was advised to rest, ice, elevate, compress the area. Patient stable at time of discharge. Case discussed with my attending, Dr. Garcia. Undiagnosed new problem with uncertain prognosis? @ -No Drug Therapy requiring intensive monitoring for toxicity (Heparin, Nitro, Insulin, Cardizem)? @ -No Were any procedures done? @ -No Diagnosis/symptom? @ -leg hematoma Acute, or Chronic, or Acute on Chronic? @ -acute Uncomplicated (without systemic symptoms) or Complicated (systemic symptoms)? @ -uncomplicated Side effects of treatment? @ -No Exacerbation, Progression, or Severe Exacerbation? @ -No Poses a threat to life or bodily function? How? (Chest pain, [place], [place], pneumonia, PE, COPD, DKA, ARF, appy, cholecystitis, CVA, Diverticulitis, Homicidal, Suicidal, threat to staff... and all critical care pts) @ -No Disposition Clinical Impression: Hematoma of right lower leg Disposition: HOME SELF-CARE Condition: Stable Instructions (If sedation given, give patient instructions): Hematoma (ED) Additional Instructions: Rest, ice, and elevate the leg. Please follow up with your primary care provider. Return to the emergency department for new or worsening symptoms including numbness or tingling in the foot or leg, increased pain despite pain medications. Is patient prescribed a controlled substance at d/c from ED?: No Referrals: Earl Varghese MD [Primary Care Provider] - 1-2 days
[2022-11-03] MEDS ORDERED: KETOROLAC 15 MG/ML 1 ML VIAL IM STA (20:08)
[2022-11-03] MEDS ORDERED: ACETAMINOPHEN TAB 325 MG TAB PO STA (20:16)
--- NOTE | 2022-11-03 20:19 | XR ---
EXAMINATION TYPE: XR tibia fibula RT DATE OF EXAM: 11/03/2022 8:15 PM INDICATION: Patient age:Male; 37 years old; Reason for study: Trauma; H. COMPARISON: Right femur radiograph 09/12/2015 TECHNIQUE: The right tibia/fibula was examined in AP and lateral projections. FINDINGS: No evidence of any acute osseous pathology, joint dislocation, or soft tissue swelling is n oted. No osseous erosions. No radiopaque foreign bodies. IMPRESSION: No evidence of acute fracture.
[2022-11-03 21:00] VITALS: BP 196/123
== END 2022-11-03 21:00 | disposition home or self-care (01) ==
LOC: EC 19:36
DX: S80.11XA Contusion of right lower leg, initial encounter (principal); I10 Essential (primary) hypertension; W21.07XA Struck by softball, initial encounter; Y93.64 Activity, baseball
CPT/HCPCS: 99283 ×2; 96372 ×2; 73590; J1885

== ENCOUNTER 2022-12-13 17:27 | Emergency (ER) | payer BC ==
[2022-12-13 17:47] VITALS: RESP 18
[2022-12-13] MEDS ORDERED: KETOROLAC 15 MG/ML 1 ML VIAL IVP STA (18:08)
--- NOTE | 2022-12-13 18:33 | XR ---
EXAMINATION TYPE: XR tibia fibula RT DATE OF EXAM: 12/13/2022 6:25 PM INDICATION: Patient age:Male; 37 years old; Reason for study: wound infection; [facility]. COMPARISON: Right tibia/fibula radiograph 11/03/2022 TECHNIQUE: The right tibia/fibula was examined in AP and lateral projections. FINDINGS: No acute fracture or dislocation. No periosteal reaction. No osseous erosions. Mild soft ti ssue swelling of the ankle. No visualized soft tissue gas. No radiopaque foreign body. IMPRESSION: 1. No evidence of acute fracture. No osseous erosions. 2. Mild soft tissue swelling of the ankle.
[2022-12-13 18:36] LABS: Basophils % (A) 1 %; Eosinophils # (A) 0.6 k/uL (0-0.7); Eosinophils % (A) 8 %; HCT 42.5 % (39.0-53.0); Lymphocytes # (A) 1.7 k/uL (1.0-4.8); Lymphocytes % (A) 22 %; MCH 31.3 pg (25.0-35.0); MCHC 35.3 g/dL (31.0-37.0); MCV 88.6 fL (80.0-100.0); Mean Platelet Volume 8.3; Monocytes # (A) 0.5 k/uL (0-1.0); Monocytes % (A) 6 %; Neutrophils # (A) 4.7 k/uL (1.3-7.7); Neutrophils % (A) 62 %; Platelet Count 251 k/uL (150-450); RDW 12.3 % (11.5-15.5); WBC 7.6 k/uL (3.8-10.6)
[2022-12-13] MEDS ORDERED: CEPHALEXIN 500 MG CAP PO STA (19:01)
[2022-12-13] MEDS ORDERED: SULFAMETHOX-TMP 800-160MG 1 EACH TAB PO STA (19:02)
[2022-12-13 19:35] LABS: ALT 42 U/L (4-49); AST 80 U/L (17-59); African American GFR (CKD) 85 (>60 ml/min/1.73 sqM); Albumin 4.9 g/dL (3.5-5.0); Alkaline Phosphatase 68 U/L (38-126); Anion Gap 13 mmol/L; Blood Urea Nitrogen 22 mg/dL (9-20); Calcium 9.2 mg/dL (8.4-10.2); Carbon Dioxide 20 mmol/L (22-30); Chloride 107 mmol/L (98-107); Glucose 120 mg/dL (74-99); Non-African American GFR(CKD) 73 (>60 ml/min/1.73 sqM); Potassium 5.3 mmol/L (3.5-5.1); Sodium 140 mmol/L (137-145); Total Bilirubin 1.3 mg/dL (0.2-1.3); Total Protein 8.3 g/dL (6.3-8.2)
[2022-12-13 19:42] VITALS: BP 150/90; PULSE 77
--- NOTE | 2022-12-13 19:42 | ED ---
Extremity Problem HPI - General Chief complaint: Extremity Problem,Nontraumatic Stated complaint: infected R leg Time Seen by Provider: 12/13/22 17:52 Source: patient Mode of arrival: ambulatory Limitations: no limitations - History of Present Illness Initial comments: Patient is a 37-year-old male who presents to emergency department for wound infection. Patient was hit in his lower leg with a softball late October. States he has had a hematoma since the injury. One week ago the hematoma. Over the past few days he has noticed redness around the wound along with drainage and increased pain. He denies fever, chills, nausea, vomiting. Denies history of abscess and MRSA. - Related Data Home Medications Medication Instructions Recorded Confirmed amLODIPine BESYLATE/BENAZEPRIL 1 cap PO DAILY 12/13/22 12/13/22 [Lotrel 10-20 mg Capsule] Previous Rx's Medication Instructions Recorded Cephalexin [Keflex] 500 mg PO Q6HR #40 cap 12/13/22 Sulfamethox-Tmp 800-160Mg [Bactrim 1 tab PO Q12HR #20 tab 12/13/22 DS 800-160 mg] Allergies Allergy/AdvReac Type Severity Reaction Status Date / Time No Known Allergies Allergy Verified 12/13/22 18:41 Review of Systems ROS Statement: Those systems with pertinent positive or pertinent negative responses have been documented in the HPI. ROS Other: All systems not noted in ROS Statement are negative. Past Medical History Past Medical History: Hypertension, Musculoskeletal Disorder, Skin Disorder Additional Past Medical History / Comment(s): dog bite injury on 04/13 to left hand History of Any Multi-Drug Resistant Organisms: None Reported Past Surgical History: Cholecystectomy Past Anesthesia/Blood Transfusion Reactions: No Reported Reaction Past Psychological History: No Psychological Hx Reported Smoking Status: Never smoker Past Alcohol Use History: None Reported Past Drug Use History: None Reported - Past Family History Mother Family Medical History: Thyroid Disorder Father Family Medical History: Coronary Artery Disease (CAD) General Exam Limitations: no limitations General appearance: alert Respiratory exam: Present: normal lung sounds bilaterally. Absent: respiratory distress, wheezes, rales, rhonchi, stridor Cardiovascular Exam: Present: regular rate, normal rhythm, normal heart sounds. Absent: systolic murmur, diastolic murmur, rubs, gallop, clicks Extremities exam: Present: other (4 by 3 inch wound with erythematous borders. Minimal purulent drainage. No surrounding erythema, swelling. No fluctuance or drainable abscess) Course Vital Signs 12/13/22 12/13/22 12/13/22 17:44 19:41 19:57 Temperature 98.6 F 98.1 F Pulse Rate 88 77 Respiratory 18 18 Rate Blood Pressure 178/99 150/90 O2 Sat by Pulse 99 100 Oximetry Medical Decision Making - Medical Decision Making Was pt. sent in by a medical professional or institution ([facility], CREAM BEATER, urgent care, hospital, or skilled nursing...) When possible be specific @ -No Did you speak to anyone other than the patient for history (EMS, parent, family, police, friend...)? What history was obtained from this source @ -No Did you review nursing and triage notes (agree or disagree)? Why? @ -I reviewed and agree with nursing and triage notes Were old charts reviewed (outside hosp., previous admission, EMS record, old EKG, old radiological studies, urgent care reports/EKG's, skilled nursing records)? Report findings @ -No old charts were reviewed Differential Diagnosis (chest pain, altered mental status, abdominal pain women, abdominal pain men, vaginal bleeding, weakness, fever, dyspnea, syncope, headache, dizziness, GI bleed, back pain, seizure, CVA, palpatations, mental health)? @ -Cellulitis, wound infection, abscess EKG interpreted by me (3pts min.). @ -As above X-rays interpreted by me (1pt min.). @ No osseous abnormality CT interpreted by me (1pt min.). @ -None done U/S interpreted by me (1pt. min.). @ -None done What testing was considered but not performed or refused? (CT, X-rays, U/S, labs)? Why? @ -None What meds were considered but not given or refused? Why? @ -None Did you discuss the management of the patient with other professionals (professionals i.e. [facility], CREAM BEATER, lab, RT, psych nurse, social services analyst, student ministry pastor, teacher, water resources technical officer, binder caser)? Give summary @ -No Was smoking cessation discussed for >3mins.? @ -No Was critical care preformed (if so, how long)? @ -No Were there social determinants of health that impacted care today? How? (Homelessness, low income, unemployed, alcoholism, drug addiction, transportation, low edu. Level, literacy, decrease access to med. care, detention, rehab)? @ -No Was there de-escalation of care discussed even if they declined (Discuss DNR or withdrawal of care, Hospice)? DNR status @ -No What co-morbidities impacted this encounter? (DM, HTN, Smoking, COPD, CAD, Ca ncer, CVA, ARF, Chemo, Hep., AIDS, mental health diagnosis, sleep apnea, morbid obesity)? @ -None Was patient admitted / discharged? Hospital course, mention meds given and route, prescriptions, significant lab abnormalities, going to OR and other pertinent info. @ Patient presenting with wound infection. No systemic symptoms or signs. No leukocytosis. Patient will be discharged with Keflex and Bactrim. Wound culture pending. Patient to watch wound closely and return if symptoms persist or worsen otherwise he will follow up with primary care provider Undiagnosed new problem with uncertain prognosis? @ -No] Drug Therapy requiring intensive monitoring for toxicity (Heparin, Nitro, Insulin, Cardizem)? @ -[No] Were any procedures done? @ -[No] Diagnosis/symptom? @ -wound infection Acute, or Chronic, or Acute on Chronic? @ -Acute Uncomplicated (without systemic symptoms) or Complicated (systemic symptoms)? @ Uncomplicated Side effects of treatment? @ -[No] Exacerbation, Progression, or Severe Exacerbation? @ -[No] Poses a threat to life or bodily function? How? (Chest pain, [place], [place], pneumonia, PE, COPD, DKA, ARF, appy, cholecystitis, CVA, Diverticulitis, Homicidal, Suicidal, threat to staff... and all critical care pts) @ -[No] Dr. Malone is my attending - Lab Data Result diagrams: 12/13/22 18:21 12/13/22 18:21 Lab Results 12/13/22 12/13/22 Range/Units 18:21 18:21 WBC 7.6 (3.8-10.6) k/uL RBC 4.80 (4.30-5.90) m/uL Hgb 15.0 (13.0-17.5) gm/dL Hct 42.5 (39.0-53.0) % MCV 88.6 (80.0-100.0) fL MCH 31.3 (25.0-35.0) pg MCHC 35.3 (31.0-37.0) g/dL RDW 12.3 (11.5-15.5) % Plt Count 251 (150-450) k/uL MPV 8.3 Neutrophils % 62 % Lymphocytes % 22 % Monocytes % 6 % Eosinophils % 8 % Basophils % 1 % Neutrophils # 4.7 (1.3-7.7) k/uL Lymphocytes # 1.7 (1.0-4.8) k/uL Monocytes # 0.5 (0-1.0) k/uL Eosinophils # 0.6 (0-0.7) k/uL Basophils # 0.0 (0-0.2) k/uL Sodium 140 (137-145) mmol/L Potassium 5.3 H (3.5-5.1) mmol/L Chloride 107 (98-107) mmol/L Carbon Dioxide 20 L (22-30) mmol/L Anion Gap 13 mmol/L BUN 22 H (9-20) mg/dL Creatinine 1.25 (0.66-1.25) mg/dL Est GFR (CKD-EPI)AfAm 85 (>60 ml/min/1.73 sqM) Est GFR (CKD-EPI)NonAf 73 (>60 ml/min/1.73 sqM) Glucose 120 H (74-99) mg/dL Calcium 9.2 (8.4-10.2) mg/dL Total Bilirubin 1.3 (0.2-1.3) mg/dL AST 80 H (17-59) U/L ALT 42 (4-49) U/L Alkaline Phosphatase 68 (38-126) U/L Total Protein 8.3 H (6.3-8.2) g/dL Albumin 4.9 (3.5-5.0) g/dL Disposition Clinical Impression: Wound infection Disposition: HOME SELF-CARE Condition: Good Additional Instructions: Take medication as directed. Please follow-up with your primary care provider in 1-2 days. Return to the emergency department if you experience new, con cerning, or worsening symptoms. Prescriptions: Sulfamethox-Tmp 800-160Mg [Bactrim DS 800-160 mg] 1 tab PO Q12HR #20 tab Cephalexin [Keflex] 500 mg PO Q6HR #40 cap Is patient prescribed a controlled substance at d/c from ED?: No Referrals: Earl Varghese MD [Primary Care Provider] - 1-2 days
[2022-12-13 19:59] VITALS: TEMP 98.1
== END 2022-12-13 20:01 | disposition home or self-care (01) ==
LOC: EC 17:27
DX: T81.49XA Infection following a procedure, other surgical site, initial encounter (principal); I10 Essential (primary) hypertension
CPT/HCPCS: 36415; 80053; 85025; 87070; 87205; 87077; 87186; 73590; 99284; 96374; J1885

== ENCOUNTER 2024-09-30 13:06 | Inpatient (IN) | payer BC ==
[2024-09-30] MEDS ORDERED: ALPRAZolam 0.5 MG TAB PO PRN (14:43)
[2024-09-30] MEDS ORDERED: ALPRAZolam 0.25 MG TAB PO PRN (14:43)
[2024-09-30] MEDS: VERAPAMIL 2.5 MG/ML 4 ML VIAL INTRAARTER ONE (16:30)
[2024-09-30] MEDS: MIDAZOLAM 2 MG/2 ML VIAL IVP ONE ×2 (16:30→16:47)
[2024-09-30] MEDS: fentaNYL (PF) 50 MCG/1 ML VIAL IVP ONE ×2 (16:30→16:55)
[2024-09-30] MEDS: PRASUGREL 10 MG TAB PO ONE (16:30)
[2024-09-30] MEDS: HEPARIN SODIUM 1,000 UN/ML (10ML VL) IVP ONE (16:38)
[2024-09-30] MEDS: NITROGLYCERIN 1000MCG/10ML SYRINGE INTRACORON ONE ×2 (16:49→16:57)
[2024-09-30] MEDS: SODIUM CHLORIDE 0.9% 1,000 ML IV ONE (17:08)
[2024-09-30] MEDS: IOPAMIDOL-370 100ML BTL INTRATHECA ONE (17:08)
[2024-09-30] MEDS: HEPARIN SODIUM,PORCINE (1 ML) 2,500 UNIT in SODIUM CHLORIDE 0.9% 250 ML IRRIGATION ONE (17:09)
[2024-09-30] MEDS: HEPARIN SODIUM,PORCINE 10,000 UNIT in SODIUM CHLORIDE 0.9% 1,000 ML IRRIGATION ONE (17:09)
[2024-09-30] MEDS ORDERED: RX INFO: IV CONTRAST WAS GIVEN 1 EACH MISC MISCELLANE PRN (17:21)
[2024-09-30] MEDS ORDERED: ZOLPIDEM 5 MG TAB PO PRN (17:21)
[2024-09-30] MEDS ORDERED: ATROPINE SULFATE 0.1 MG/ML 10ML SYRINGE IV PRN (17:21)
[2024-09-30] MEDS ORDERED: NITROGLYCERIN SL TABS 0.4 MG TAB SUBLINGUAL PRN (17:21)
--- NOTE | 2024-09-30 17:25 | P.PCN ---
Date of Procedure: 09/30/24 Operative Findings: PERCUTANEOUS CORONARY INTERVENTION Performing physician Isiah Tate M.D. Procedure Performed: 1. Successful stenting of the mid LAD using 4.0 x 28 mm Xience drug-eluting stent with an excellent angiographic results. 2. Adjunctive use of IVUS 3. Selective right coronary angiogram Indication: Acute non-ST elevation myocardial infarction Approach: Right radial art Complications: None Level of Sedation: Moderate with a sedation length of 32 minutes Procedure Discussion: Please refer to diagnostic heart catheterization was performed at [facility]. The patient was brought for PCI. Anticoagulation was initiated using heparin. The right radial sheath was exchanged over a 018 wire into a new right radial sheath. I did engage the left main using JL 3.5 guiding catheter. I did wired the LAD using a run-through wire. Subsequently I did IVUS of the LAD which showed a diameter between 3.5 to 4 mm. Predilatation was performed using 3 mm score flex balloon before I deployed 4.0 x 28 mm Xience which was postdilated using 4 mm NC balloon with IVUS was performed and subsequently another postdilatation was performed using 4 mm NC balloon at higher pressure. Final angiogram showed excellent angiographic results and the procedure was completed with no complication. Also I did selective right coronary angiogram which was not performed at [facility]. That showed only mild disease involving the RCA. Postprocedure Management: 1. Dual antiplatelet therapy using aspirin and Brilinta for 12 months 2. Aggressive cholesterol control 3. Risk factors modification
[2024-09-30 19:57] LABS: Glucose,Whole Blood 149 mg/dL (70-110)
[2024-09-30] MEDS: ATORVASTATIN 80 MG TAB PO SCH (20:00)
[2024-09-30] MEDS: SODIUM CHLORIDE 0.9% 1,000 ML in EMPTY BAG 1 BAG IV SCH ×2 (20:00)
[2024-09-30] MEDS: NITROGLYCERIN SL TABS 0.4 MG TAB SUBLINGUAL PRN (23:20)
[2024-10-01] MEDS: MAG HYDROX/AL HYDROX/SIMETH 30 ML CUP PO PRN (00:13)
[2024-10-01] MEDS: ISOSORBIDE MONONITRATE ER 30 MG TAB.ER.24H PO SCH (00:13)
[2024-10-01] MEDS: ASPIRIN 325 MG TAB PO ONE (06:39)
[2024-10-01] MEDS ORDERED: HEPARIN SODIUM,PORCINE (1 ML) 2,500 UNIT in SODIUM CHLORIDE 0.9% 250 ML IRRIGATION PRN (07:00)
[2024-10-01] MEDS ORDERED: HEPARIN SODIUM,PORCINE 10,000 UNIT in SODIUM CHLORIDE 0.9% 1,000 ML IRRIGATION PRN (07:00)
[2024-10-01 07:47] LABS: African American GFR (CKD) 84 (>60 ml/min/1.73 sqM); Non-African American GFR(CKD) 73 (>60 ml/min/1.73 sqM)
[2024-10-01] MEDS: PRASUGREL 10 MG TAB PO SCH (08:58)
[2024-10-01] MEDS: amLODIPine 10 MG TAB PO SCH (08:59)
[2024-10-01] MEDS: BISOPROLOL-HCTZ 10-6.25 MG 1 EACH TAB PO SCH (09:00)
[2024-10-01] MEDS: lisinopriL 20 MG TAB PO SCH (09:00)
[2024-10-01 09:07] LABS: Basophils # (A) 0.06 10*3/uL (0.00-0.10); Eosinophils # (A) 0.38 10*3/uL (0.04-0.35); Eosinophils % (A) 6.4 %; HCT 45.3 % (39.6-50.0); HGB 15.7 g/dL (13.0-17.0); Lymphocytes # (A) 1.04 10*3/uL (0.90-5.00); Lymphocytes % (A) 17.4 %; MCH 30.6 pg (27.0-32.0); MCHC 34.7 g/dL (32.0-37.0); MCV 88.3 fL (80.0-97.0); Mean Platelet Volume 10.9 fL (9.5-12.2); Monocytes # (A) 0.58 10*3/uL (0.20-1.00); Monocytes % (A) 9.7 %; Neutrophils % (A) 65.2 %; Platelet Count 247 10*3/uL (140-440); RBC 5.13 10*6/uL (4.40-5.60); RDW 11.9 % (11.5-14.5); WBC 5.98 10*3/uL (4.50-10.00)
[2024-10-01 09:15] LABS: ALT 35 U/L (4-49); AST 39 U/L (17-59); African American GFR (CKD) 83 (>60 ml/min/1.73 sqM); Albumin 4.3 g/dL (3.5-5.0); Alkaline Phosphatase 61 U/L (38-126); Anion Gap 7 mmol/L; Blood Urea Nitrogen 14 mg/dL (9-20); Calcium 9.2 mg/dL (8.4-10.2); Carbon Dioxide 23 mmol/L (22-30); Chloride 108 mmol/L (98-107); Glucose 115 mg/dL (74-99); Non-African American GFR(CKD) 72 (>60 ml/min/1.73 sqM); Potassium 4.6 mmol/L (3.5-5.1); Sodium 138 mmol/L (137-145); Total Bilirubin 0.6 mg/dL (0.2-1.3); Total Protein 6.8 g/dL (6.3-8.2)
[2024-10-01] MEDS ORDERED: amLODIPine 10 MG TAB PO SCH (09:30)
[2024-10-01] MEDS: ASPIRIN 81 MG PO SCH (11:34)
--- NOTE | 2024-10-01 13:50 | P.PN ---
Subjective Progress Note Date: 10/01/24 This is a 39-year-old male with past medical history of hypertension. Patient presented to [facility] and diagnosed with NSTEMI. Patient underwent cardiac catheterization was transferred to [facility] and subsequently underwent LAD stent. Patient denies chest pain or chest pressure. No chest tightness. No shortness of breath. Blood pressure 154/79, heart rate in the 50s, pulse ox 98% on room air. Repeat blood work reveals hemoglobin 15.7, creatinine 1.25. Physical examination: Gen: This is a 39-year-old male in no acute distress VS: reviewed HEENT: Head is atraumatic, normocephalic. Pupils equal, round. Sclerae is anicteric. NECK: Supple. No JVD. LUNGS: Clear to auscultation. No wheezes or rhonchi. No intercostal retractions. HEART: Regular rate and rhythm. ABDOMEN: Soft No tenderness. EXTREMITIES: No pedal edema. No calf tenderness. NEUROLOGICAL: Patient is awake, alert and oriented x3. Assessment: NSTEMI status post stent to the LAD on 09/30 Hypertension Plan: Continue current cardiac medications: Amlodipine 10 mg daily, aspirin 81 mg daily, atorvastatin 80 mg daily, Imdur 30 mg daily, lisinopril 20 mg daily, Effient 10 mg daily Obtain 2-D echocardiogram and Doppler study to assess cardiac structure and function Plan to monitor patient overnight and discharge home tomorrow Further recommendations to follow based upon clinical course Nurse practitioner note has been reviewed, I agree with documented findings and plan of care. Patient was seen and examined. Objective - Vital Signs Vital signs: Vital Signs Temp 98.1 F 09/30/24 19:51 Pulse 49 L 10/01/24 03:14 Resp 17 10/01/24 03:14 BP 150/85 10/01/24 03:14 Pulse Ox 95 10/01/24 03:14 FiO2 Intake & Output 09/30/24 10/01/24 10/01/24 18:59 06:59 18:59 Intake Total 200 120 Balance 200 120 Weight 106.5 kg 106.1 kg Intake: IV 200 Oral 120 Other: Voiding Method Toilet # Voids 1 - Labs CBC & Chem 7: 10/01/24 07:15 10/01/24 07:15 Labs: Abnormal Lab Results - Last 24 Hours (Table) 09/30/24 10/01/24 10/01/24 Range/Units 19:56 07:15 07:15 Eosinophils # 0.38 H (0.04-0.35) 10*3/uL Chloride 108 H (98-107) mmol/L Glucose 115 H (74-99) mg/dL POC Glucose (mg/dL) 149 H (70-110) mg/dL
--- NOTE | 2024-10-01 14:26 | P.HPIM ---
History of Present Illness H&P Date: 10/01/24 Patient is a 39-year-old male with hypertension, from [facility] for evaluation of chest pain. Patient reported that as he was going to work at 6am yesterday, he experienced intermittent chest pressure at left side of the chest, radiated to back and left arm with diaphoresis that lasted for an hour. Pain worsened at the [facility] ED and improved with Nitro and aspirin. Denied shortness of breath, palpitations, focal weakness, vision changes, speech changes, abdominal pain. Was found to have NSTEMI and transferred to our facility for PCI. On admission: Vitals: Temp 97.4 F, IL 52, RR 16, BP 145/85, O2 saturation 96% on room air Labs: POC glucose 149, creatinine 1.2,. Imaging: EKG in our facility dependently interpreted showed sinus bradycardia with a rate of 54 bpm, normal axis, inverted T waves in V1-V3, ST elevations in leads II and III, QTc 397ms. Cardiology documentation reviewed. Review of systems: Pertinent positives and negatives as discussed in HPI, a complete review of systems was performed and all other systems are negative. 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 Physical examination: Vital signs reviewed General: non toxic, no distress, appears at stated age, room air Derm: no unusual rashes/lesions, warm Head: atraumatic, normocephalic, symmetric Eyes: EOMI, anicteric sclera, pupils equal round reactive to light ENT: Nose and ears atraumatic Neck: No cervical lymphadenopathy, trachea midline, supple Mouth: no lip lesion, mucus membranes moist Cardiovascular: S1S2 reg, no murmur Lungs: CTA bilateral, no rhonchi, no rales, no accessory muscle use Abdominal: soft, nondistended, nontender to palpation, no guarding Ext: muscle strength 5 out of 5 in all 4 extremities grossly, no gross muscle atrophy, no contractures, positive dorsalis pedis pulse bilateral, no edema Neuro: CN II-XI grossly intact, no gross focal neuro deficits Psych: Alert and oriented x 3, appropriate affect and mood Assessment/Plan: The patient is admitted with an anticipated greater than 2 midnight stay for ev aluation of NSTEMI Active: # NSTEMI s/p stenting of mid LAD Cardiac monitoring Supplemental oxygen as needed Heart healthy diet EKG as needed Echocardiogram ordered Nitroglycerin prn for chest pain. 0.4 mg PO Given aspirin 325 mg once in the ED Continue with aspirin 81 mg daily Effient initiated per cardiology for 12 months Continue lipitor 80 mg daily CMP and CBC ordred Cardiology consulted. Cardiac catheter showed successful stenting of mid LAD. Diagnostic heart cath done at [facility]. #Sinus bradycardia, symptomatic Atropine as needed ordered by cardiology Asymptomatic at this time Continue cardiac monitoring # Hypertension, controlled Continue home Ziac p.o., amlodipine p.o. Initiated on Imdur 30 mg daily DVT ppx: Currently on aspirin and Effient CODE STATUS: Full Discussed with: Patient Anticipated discharge place: home Elis Carrera MD PGY-1 Internal Medicine Dictation was produced using [employer] dictation software. please excuse any grammatical, word or spelling errors. Past Medical History Past Medical History: Hypertension, Musculoskeletal Disorder, Skin Disorder Additional Past Medical History / Comment(s): dog bite injury on 04/13/22 to left hand History of Any Multi-Drug Resistant Organisms: None Reported Past Surgical History: Cholecystectomy Additional Past Surgical History / Comment(s): Vasectomy 07/2024 Past Anesthesia/Blood Transfusion Reactions: No Reported Reaction Past Psychological History: No Psychological Hx Reported Smoking Status: Never smoker Past Alcohol Use History: None Reported Past Drug Use History: None Reported - Past Family History Mother Family Medical History: Thyroid Disorder Father Family Medical History: Coronary Artery Disease (CAD) Medications and Allergies Home Medications Medication Instructions Recorded Confirmed Type amLODIPine BESYLATE/BENAZEPRIL 1 cap PO DAILY 12/13/22 09/30/24 History [Lotrel 10-20 mg Capsule] Bisoprolol-Hctz 10-6.25 mg [Ziac 1 mg PO DAILY 09/30/24 09/30/24 History 10-6.25 MG] Allergies Allergy/AdvReac Type Severity Reaction Status Date / Time No Known Allergies Allergy Verified 09/30/24 21:08 Physical Exam Vitals: Vital Signs Temp Pulse Pulse Resp BP BP Pulse Ox 10/01/24 03:14 49 L 17 150/85 95 09/30/24 23:40 145/83 09/30/24 23:21 54 L 18 160/98 95 09/30/24 20:56 51 L 18 152/97 94 L 09/30/24 20:06 50 L 18 156/96 95 09/30/24 19:51 98.1 F 55 L 18 143/81 98 09/30/24 19:06 57 L 17 141/80 98 09/30/24 18:36 58 L 141/80 09/30/24 18:06 51 L 143/87 09/30/24 17:51 53 L 159/76 09/30/24 17:41 97.3 F L 50 L 18 165/92 99 09/30/24 17:36 49 L 159/92 09/30/24 17:21 97.3 F L 49 L 20 165/76 99 09/30/24 14:38 97.4 F L 52 L 16 145/85 96 Intake and Output 09/30/24 10/01/24 10/01/24 22:59 06:59 14:59 Intake Total 200 Balance 200 Intake: IV 200 Other: Voiding Method Toilet Toilet # Voids 1 1 Weight 106.5 kg 106.1 kg Results CBC & Chem 7: 10/01/24 07:15 10/01/24 07:15 Labs: Abnormal Lab Results - Last 24 Hours (Table) 09/30/24 Range/Units 19:56 POC Glucose (mg/dL) 149 H (70-110) mg/dL
[2024-10-01 14:58] VITALS: BMI 34.5
--- NOTE | 2024-10-01 18:56 | CA ---
Transthoracic Echo Report Name: Santosh Robertson Age: 39 Gender: M : 1985 Exam Date: 10/01/2024 09:53 Exam Location: [facility] Ht (in): 69 Wt (lb): 234 Ordering Physician: Isiah Tate MD ([id number]) Attending/Referring Phys: Process Control Tech Apryl Elias RDCS Procedure CPT: Indications: ACS Cardiac Hx: Technical Quality: Fair Contrast 1: Definity Total Dose (mL): 2 Contrast 2: Total Dose (mL): MEASUREMENTS (Male / Female) Normal Values 2D ECHO LV Diastolic Diameter PLAX 5.0 cm 4.2 - 5.9 / 3.9 - 5.3 cm LV Systolic Diameter PLAX 2.7 cm IVS Diastolic Thickness 1.5 cm 0.6 - 1.0 / 0.6 - 0.9 cm LVPW Diastolic Thickness 1.5 cm 0.6 - 1.0 / 0.6 - 0.9 cm LV Relative Wall Thickness 0.6 RV Internal Dim ED PLAX 3.1 cm LVOT Diameter 2.3 cm LA Systolic Diameter LX 4.8 cm 3.0 - 4.0 / 2.7 - 3.8 cm M-MODE Aortic Root Diameter MM 3.1 cm LA Systolic Diameter MM 3.8 cm LA Ao Ratio MM 1.2 AV Cusp Separation MM 2.1 cm DOPPLER AV Peak Velocity 142.2 cm/s AV Peak Gradient 8.1 mmHg AV Mean Velocity 106.9 cm/s AV Mean Gradient 4.9 mmHg AV Velocity Time Integral 30.1 cm MV Area PHT 2.6 cm??? Mitral E Point Velocity 65.4 cm/s Mitral A Point Velocity 68.7 cm/s Mitral E to A Ratio 1.0 MV Deceleration Time 294.9 ms FINDINGS Left Ventricle Left ventricular ejection fraction is estimated at 40-45 %. Apical and anteroseptal hypokinesis.left ventricular cavity size normal. Moderately increased left ventricular wall thickness. Right Ventricle Normal right ventricular size and function. Right ventricular systolic pressure within normal limits. Right Atrium Mild right atrial dilatation. Left Atrium Mild left atrial dilatation. Mitral Valve Structurally normal mitral valve. mild mitral regurgitation. No mitral stenosis. Aortic Valve Trileaflet aortic valve. No aortic valve stenosis or regurgitation. Tricuspid Valve Structurally normal tricuspid valve. Trace tricuspid regurgitation. No tricuspid stenosis. Pulmonic Valve Structurally normal pulmonic valve. Trace pulmonic regurgitation. No pulmonic stenosis. Pericardium No pericardial or pleural effusion. Aorta CONCLUSIONS 1. Moderately impaired left ventricular systolic function with segmental wall motion abnormality 2. Mild mitral regurgitation Previewed by: Dr. Torrie Hollingsworth MD (Electronically Signed) Final Date: 01 October 2024 18:55
[2024-10-01] MEDS: ACETAMINOPHEN TAB 325 MG TAB PO PRN (19:42)
[2024-10-01 21:10] LABS: Chol/HDL Ratio 5.07 Ratio; LDL Cholesterol,Calculated 111.5 mg/dL (0.0-131.0)
[2024-10-02] MEDS: amLODIPine 10 MG TAB PO SCH (08:57)
[2024-10-02 09:53] VITALS: RESP 16; TEMP 97.6
[2024-10-02 12:43] VITALS: BP 121/75; PULSE 59
--- NOTE | 2024-10-02 14:18 | P.PN ---
Subjective Progress Note Date: 10/02/24 This is a 39-year-old male with past medical history of hypertension. Patient presented to [facility] and diagnosed with NSTEMI. Patient underwent cardiac catheterization was transferred to [facility] and subsequently underwent LAD stent. Patient denies chest pain or chest pressure. No chest tightness. No shortness of breath. Blood pressure 154/79, heart rate in the 50s, pulse ox 98% on room air. Repeat blood work reveals hemoglobin 15.7, creatinine 1.25. 10/02/2024 Patient seen and examined. He denies chest pain or shortness of breath. No lightheadedness or dizziness. Echocardiogram reveals EF of 40 to 45%, mild mitral regurgitation. Blood pressure 121/75, heart rate 59, pulse ox 96% on room air triglycerides 201, cholesterol 189, LDL 111 Patient seen and examined. Physical examination: Gen: This is a 39-year-old male in no acute distress VS: reviewed HEENT: Head is atraumatic, normocephalic. Pupils equal, round. Sclerae is anicteric. NECK: Supple. No JVD. LUNGS: Clear to auscultation. No wheezes or rhonchi. No intercostal retractions. HEART: Regular rate and rhythm. ABDOMEN: Soft No tenderness. EXTREMITIES: No pedal edema. No calf tenderness. NEUROLOGICAL: Patient is awake, alert and oriented x3. Assessment: NSTEMI status post stent to the LAD on 09/30 Hypertension Plan: Continue current cardiac medications: Amlodipine 10 mg daily, aspirin 81 mg daily, atorvastatin 80 mg daily, Imdur 30 mg daily, lisinopril 20 mg daily, Effient 10 mg daily LDL goal less than 70 Patient is not on a beta-gar[place] due to bradycardia Patient is cleared for discharge from cardiology perspective. Patient will follow-up in the office with Dr. Tate in 1 week. Nurse practitioner note has been reviewed, I agree with documented findings and plan of care. Patient was seen and examined. Objective - Vital Signs Vital signs: Vital Signs Temp 97.6 F 10/02/24 08:00 Pulse 59 L 10/02/24 12:00 Resp 16 10/02/24 12:00 BP 121/75 10/02/24 12:00 Pulse Ox 96 10/02/24 12:00 FiO2 Intake & Output 0610/02/24 10/02/24 18:59 06:59 18:59 Intake Total 360 240 Balance 360 240 Weight 106.1 kg 104.8 kg Intake: Oral 360 240 Other: Voiding Method Toilet Toilet Toilet # Voids 3 2 - Labs CBC & Chem 7: 10/01/24 07:15 10/01/24 07:15 Labs: Abnormal Lab Results - Last 24 Hours (Table) 10/01/24 Range/Units 07:15 Triglycerides 201.00 H (0.00-149.00) mg/dL VLDL Cholesterol, Calc 40.20 H (5.00-40.00) mg/dL HDL Cholesterol 37.30 L (40.00-60.00) mg/dL
--- NOTE | 2024-10-02 16:05 | P.DS ---
Providers Date of admission: 09/30/24 13:23 Attending physician: Kevin Burks Consults: 09/30/24 17:21 Consult Physician Routine Consulting Provider: London Natarajan Consult Reason/Comments: Post Interventional patient Do you want consulting provider notified?: Already Contacted Consult Physician Routine Consulting Provider: London Natarajan Consult Reason/Comments: Post Interventional patient Do you want consulting provider notified?: Already Contacted Primary care physician: Earl Varghese [facility] Course: Hospital Course: Patient is a 39-year-old male with hypertension, from [facility] for evaluation of chest pain. Patient reported that as he was going to work at 6am yesterday, he experienced intermittent chest pressure at left side of the chest, radiated to back and left arm with diaphoresis that lasted for an hour. Pain worsened at the [facility] ED and improved with Nitro and aspirin. Denied shortness of breath, palpitations, focal weakness, vision changes, speech changes, abdominal pain. Was found to have NSTEMI and transferred to our facility for PCI. On admission: Vitals: Temp 97.4 F, [place] 52, RR 16, BP 145/85, O2 saturation 96% on room air Labs: POC glucose 149, creatinine 1.2,. Imaging: EKG in our facility dependently interpreted showed sinus bradycardia with a rate of 54 bpm, normal axis, inverted T waves in V1-V3, ST elevations in leads II and III, QTc 397ms. Patient was admitted for the evaluation of NSTEMI and symptomatic sinus bradycardia. Cardiac monitoring, nitroglycerin as needed, aspirin 81, Lipitor, echocardiogram were ordered. Cardiology was consulted and cardiac catheterization was done with successful stenting of the mid LAD. Atropine as needed was ordered by cardiology. Patient's symptoms improved throughout hospital stay and no new complications occurred. Patient is cleared for discharge today by cardiology and is sent home on Imdur 30 mg p.o., Effient 10 mg p.o., aspirin 81 p.o., and atorvastatin 40 mg p.o. Beta-blockers co ntraindicated due to bradycardia. Advised to follow-up with panel saw operator and PCP on outpatient basis. Final Diagnosis: #NSTEMI status post stenting of mid LAD #Sinus bradycardia, symptomatic # Hypertension, controlled Physical examination: Vital signs reviewed General: non toxic, no distress Derm: no unusual rashes/lesions, warm Head: atraumatic, normocephalic, symmetric Eyes: EOMI, anicteric sclera, pupils equal round reactive to light ENT: Nose and ears atraumatic Neck: No cervical lymphadenopathy, trachea midline, supple Mouth: no lip lesion, mucus membranes moist Cardiovascular: S1S2 reg, no murmur Lungs: CTA bilateral, no rhonchi, no rales, no accessory muscle use Abdominal: soft, nondistended, nontender to palpation, no guarding Ext: muscle strength 5 out of 5 in all 4 extremities grossly, no gross muscle atrophy, no contractures, positive dorsalis pedis pulse bilateral, no edema Neuro: CN II-XI grossly intact, no gross focal neuro deficits Psych: Alert, oriented, appropriate affect and mood Patient Condition at Discharge: Stable Plan - Discharge Summary New Discharge Prescriptions: New Isosorbide Mononitrate ER [Imdur] 30 mg PO DAILY #90 tab Nitroglycerin Sl Tabs [Nitrostat] 0.4 mg SUBLINGUAL Q5M PRN #25 tab PRN Reason: Chest Pain amLODIPine [Norvasc] 10 mg PO DAILY #30 tab lisinopriL [Zestril] 20 mg PO DAILY #15 tab Prasugrel [Effient] 10 mg PO DAILY #90 tab Aspirin 81 mg PO DAILY #30 tab Atorvastatin [Lipitor] 40 mg PO HS #30 tab Discontinued amLODIPine BESYLATE/BENAZEPRIL [Lotrel 10-20 mg Capsule] 1 cap PO DAILY Bisoprolol-Hctz 10-6.25 mg [Ziac 10-6.25 MG] 1 mg PO DAILY Discharge Medication List Aspirin 81 mg PO DAILY #30 tab 10/02/24 [Rx] Atorvastatin [Lipitor] 40 mg PO HS #30 tab 10/02/24 [Rx] Isosorbide Mononitrate ER [Imdur] 30 mg PO DAILY #90 tab 10/02/24 [Rx] Nitroglycerin Sl Tabs [Nitrostat] 0.4 mg SUBLINGUAL Q5M PRN #25 tab 10/02/24 [Rx] Prasugrel [Effient] 10 mg PO DAILY #90 tab 10/02/24 [Rx] amLODIPine [Norvasc] 10 mg PO DAILY #30 tab 10/02/24 [Rx] lisinopriL [Zestril] 20 mg PO DAILY #15 tab 10/02/24 [Rx] Follow up Appointment(s)/Referral(s): Skaf,Isiah, MD [STAFF PHYSICIAN] - 1 Week (office will call you with appt time) Earl Varghese MD [Primary Care Provider] - 1 Week (please call office for appt time) Patient Instructions/Handouts: *Surgery [facility] - After Heart Catheterization - Inspector Scales Instructions, Safe Use of Antiplatelet Medication (DC) Activity/Diet/Wound Care/Special Instructions: Please see PCP and Cardiology for follow up Discharge Disposition: HOME SELF-CARE
== END 2024-10-02 15:27 | disposition home or self-care (01) | DRG 322 ==
LOC: 3SCARD 13:23
PROVIDERS: ADMIT Internal Medicine; ATTEND Internal Medicine
PROC: 027034Z Dilation of Coronary Artery, One Artery with Drug-eluting Intraluminal Device, Percutaneous Approach (ICD-10-PCS; principal; 2024-09-30 13:30)
PROC: B240ZZ3 Ultrasonography of Single Coronary Artery, Intravascular (ICD-10-PCS; principal; 2024-09-30 13:30)
DX: I21.4 Non-ST elevation (NSTEMI) myocardial infarction (principal); I42.0 Dilated cardiomyopathy; I10 Essential (primary) hypertension; I34.0 Nonrheumatic mitral (valve) insufficiency; I25.10 Atherosclerotic heart disease of native coronary artery without angina pectoris; E78.5 Hyperlipidemia, unspecified; R00.1 Bradycardia, unspecified; Z28.310 Unvaccinated for COVID-19; Z79.899 Other long term (current) drug therapy
CPT/HCPCS: 80053; 80061; 82565; 85025; 92978; 93306; 94760